=== PATIENT | female | born 1950 | race Caucasian/White ===

== ENCOUNTER 2017-12-21 16:26 | Emergency (ER) | payer BC, OTHER ==
[2017-12-21 17:13] LABS: Absolute Monocytes 0.5 K/uL (0.1-1.3); Absolute Neutrophil 2.3 K/uL (1.8-8.0); Basophils % 0.7 % (0-1.3); Eosinophils % 2.1 % (0-4.4); Hematocrit 42.2 % (36.0-45.0); Lymphocytes % 27.1 % (15.3-44.8); MCH 30.7 pg (27.0-35.0); MCV 91.2 fL (80-100); MPV 8.6 fL (7.6-11.3); Monocytes % 11.7 % (3.3-12.3); RBC Red Blood Cell Count 4.63 M/uL (3.86-4.86)
[2017-12-21 17:26] LABS: Albumin 3.9 g/dL (3.4-5.0); Bilirubin Direct 0.1 mg/dL (0-0.2); Bilirubin Total 0.3 mg/dL (0.2-1.0); Magnesium 2.3 mg/dL (1.8-2.4); Potassium 3.7 mmol/L (3.5-5.1); Protein, Total 7.1 g/dL (6.4-8.2)
--- NOTE | 2017-12-21 17:47 | EDPHYS ---
Physician Documentation [facility] Name: Nancy Funes Age: 67 yrs Sex: Female : 1950 Arrival Date: 12/21/2017 Time: 16:27 Bed 5 Private MD: Nahun Ontiveros B ED Physician Christopher Pal HPI: 12/21 17:00 This 67 yrs old Female presents to ER via Ambulatory with complaints of cp Abnormal Lab Results. 17:00 Associated signs and symptoms: Pertinent negatives: abdominal pain, chest pain, fever, cp headache, vomiting. 17:00 Patient reports having routine blood work today with results showing elevated potassium cp of 6.2. Historical: - Allergies: 16:38 Amoxicillin; aj1 - Home Meds: 17:27 alondronate 70mg weekly [Active]; hydroxychloroquine 200 mg oral tab 1.5 tabs once sv daily [Active]; calcium, potassium, zinc [Active]; multivitamin oral oral [Active]; ginkgo biloba oral oral [Active]; Magnesium Oxide Oral [Active]; - PMHx: 16:38 Lupus; aj1 - PSHx: 16:38 None; aj1 - Immunization history:: Flu vaccine is not up to date. - Social history:: Smoking status: Patient/guardian denies using tobacco. - Ebola Screening: : Patient denies travel to an Ebola-affected area in the 21 days before illness onset. ROS: 17:05 Constitutional: Negative for body aches, chills, fever. cp 17:05 Cardiovascular: Negative for chest pain, palpitations. cp 17:05 Respiratory: Negative for cough, shortness of breath, wheezing. 17:05 Abdomen/GI: Negative for abdominal pain, nausea, vomiting, and diarrhea, black/tarry stool, rectal bleeding. 17:05 Skin: Negative for cellulitis, rash. 17:05 Neuro: Negative for altered mental status, headache, syncope, near syncope, weakness. 17:05 All other systems are negative. Exam: 16:47 ECG was reviewed by the Attending Physician. cp 17:10 Constitutional: The patient appears in no acute distress, alert, awake, cp non-diaphoretic, non-toxic, well developed, well nourished. 17:10 Head/Face: Normocephalic, atraumatic. cp 17:10 Eyes: Periorbital structures: appear normal, Conjunctiva: normal, no exudate, no injection, Lids and lashes: appear normal, bilaterally. 17:10 ENT: External ear(s): are unremarkable, Nose: is normal, Mouth: Lips: moist, Oral mucosa: moist, Posterior pharynx: is normal, airway is patent, no erythema, no exudate. 17:10 Chest/axilla: Inspection: normal, Palpation: is normal, no crepitus, no tenderness. 17:10 Cardiovascular: Rate: normal, Rhythm: regular. 17:10 Respiratory: the patient does not display signs of respiratory distress, Respirations: normal, no use of accessory muscles, no retractions, no splinting, no tachypnea, labored breathing, is not present, Breath sounds: are clear throughout, no decreased breath sounds, no stridor, no wheezing. 17:10 Abdomen/GI: Exam negative for discomfort, distension, guarding, Inspection: abdomen appears normal. 17:10 Back: pain, is absent, ROM is normal. 17:10 Skin: cellulitis, is not appreciated, no rash present. Vital Signs: 16:38 BP 155 / 81; Pulse 79; Resp 16; Temp 98.0(O); Pulse Ox 100% on R/A; Weight 58.06 kg aj1 (R); Height 5 ft. 6 in. (167.64 cm) (R); Pain 0/10; 17:30 BP 127 / 81; Pulse 69; Resp 15; Pulse Ox 99% ; sv 16:38 Body Mass Index 20.66 (58.06 kg, 167.64 cm) aj1 MDM: 16:40 Patient medically screened. cp 17:00 Differential diagnosis: cardiac arrythmia, electrolyte abnormality, renal disease. cp 17:40 Data reviewed: vital signs, nurses notes, lab test result(s), EKG. cp 17:40 Test interpretation: by ED physician or midlevel provider: ECG. 12/21 16:54 Order name: CBC with Diff; Complete Time: 17:37 12/21 17:37 Interpretation: Normal except: WBC 3.9. 12/21 16:54 Order name: BMP; Complete Time: 17:37 12/21 17:37 Interpretation: Normal except: GFR 63. 12/21 16:54 Order name: EKG; Complete Time: 16:55 cp 12/21 16:54 Order name: EKG - Nurse/Tech; Complete Time: 17:02 cp 12/21 16:54 Order name: Magnesium; Complete Time: 17:37 cp 12/21 16:54 Order name: LFT's; Complete Time: 17:37 cp 12/21 16:54 Order name: IV; Complete Time: 17:02 cp EC:47 Rate is 74 beats/min. Rhythm is regular. NE interval is normal. QRS interval is normal. cp QT interval is normal. Interpreted by me. Reviewed by me. Administered Medications: No medications were administered Disposition: 18:15 Chart complete. cp 18:39 Co-signature as Attending Physician, Christopher Pal MD. rn Disposition: 12/21/17 17:46 Discharged to Home. Impression: Encounter for screening, unspecified. - Condition is Stable. - Medication Reconciliation Form, Thank You Letter, Antibiotic Education, Prescription Opioid Use form. - Follow up: Shima Rose MD; When: 1 - 2 days; Reason: Recheck today's complaints. - Problem is new. - Symptoms are unchanged. Signatures: Dispatcher [employer] EDMS Perla Rosales RN RN [facility] Delaney Kohli RN RN Jerrell Toledo RN RN Christopher Pal MD MD rn Page, Corey, PA PA cp Corrections: (The following items were deleted from the chart) 17: 16:38 Home Meds: lupus medications; [facility] 17:27 16:38 Home Meds: alondronate; [facility] 18:05 17:46 12/21/2017 17:46 Discharged to Home. Impression: Encounter for screening, sg unspecified. Condition is Stable. Forms are Medication Reconciliation Form, Thank You Letter, Antibiotic Education, Prescription Opioid Use. Follow up: Shima Rose; When: 1 - 2 days; Reason: Recheck today's complaints. Problem is new. Symptoms are unchanged. cp
--- NOTE | 2017-12-21 17:47 | ER ---
Nurse's Notes [facility] Name: Nancy Funes Age: 67 yrs Sex: Female : 1950 Arrival Date: 12/21/2017 Time: 16:27 Bed 5 Private MD: Nahun Ontiveros B Diagnosis: Encounter for screening, unspecified Presentation: 12/21 16:36 Presenting complaint: Patient states: She was having routine blood work done today and aj1 they called and told her that her potassium was 6.2. Denies chest pain. Reports that she gets palpitations regularly. Transition of care: patient was not received from another setting of care. Onset of symptoms was December 21, 2017. Risk Assessment: Do you want to hurt yourself or someone else? Patient reports no desire to harm self or others. Initial Sepsis Screen: Does the patient meet any 2 criteria? No. Patient's initial sepsis screen is negative. Does the patient have a suspected source of infection? No. Patient's initial sepsis screen is negative. Care prior to arrival: None. 16:36 Method Of Arrival: Ambulatory [facility] 16:36 Acuity: QUETA 3 aj1 Triage Assessment: 16:38 General: Appears in no apparent distress. comfortable, Behavior is calm, cooperative, aj1 appropriate for age. Pain: Denies pain. Neuro: Level of Consciousness is awake, alert, obeys commands. Cardiovascular: Patient's skin is warm and dry. Respiratory: Airway is patent Respiratory effort is even, unlabored, Respiratory pattern is regular, symmetrical. Historical: - Allergies: 16:38 Amoxicillin; aj1 - Home Meds: 17:27 alondronate 70mg weekly [Active]; hydroxychloroquine 200 mg oral tab 1.5 tabs once sv daily [Active]; calcium, potassium, zinc [Active]; multivitamin oral oral [Active]; ginkgo biloba oral oral [Active]; Magnesium Oxide Oral [Active]; - PMHx: 16:38 Lupus; aj1 - PSHx: 16:38 None; aj1 - Immunization history:: Flu vaccine is not up to date. - Social history:: Smoking status: Patient/guardian denies using tobacco. - Ebola Screening: : Patient denies travel to an Ebola-affected area in the 21 days before illness onset. Screenin:55 Abuse screen: Denies threats or abuse. Denies injuries from another. Nutritional sv screening: No deficits noted. Tuberculosis screening: No symptoms or risk factors identified. Fall Risk None identified. Assessment: 16:55 General: Appears in no apparent distress. comfortable, slender, well developed, sv Behavior is calm, cooperative, appropriate for age. Pain: Denies pain. Neuro: Level of Consciousness is awake, alert, obeys commands, Oriented to person, place, time, situation, Moves all extremities. Full function Gait is steady, Speech is normal. Cardiovascular: Patient's skin is warm and dry. Rhythm is sinus rhythm. Respiratory: Respiratory effort is even, unlabored, Respiratory pattern is regular, symmetrical. Derm: Skin is pink, warm \T\ dry. 17:55 Reassessment: Patient appears in no apparent distress at this time. Patient and/or sg family updated on plan of care and expected duration. Pain level reassessed. Patient is alert, oriented x 3, equal unlabored respirations, skin warm/dry/pink. Patient states feeling better. Patient states symptoms have improved. Vital Signs: 16:38 BP 155 / 81; Pulse 79; Resp 16; Temp 98.0(O); Pulse Ox 100% on R/A; Weight 58.06 kg aj1 (R); Height 5 ft. 6 in. (167.64 cm) (R); Pain 0/10; 17:30 BP 127 / 81; Pulse 69; Resp 15; Pulse Ox 99% ; sv 16:38 Body Mass Index 20.66 (58.06 kg, 167.64 cm) aj1 ED Course: 16:27 Patient arrived in ED. sb2 16:27 Nahun Ontiveros MD is Private Physician. sb2 16:37 Triage completed. aj1 16:38 Arm band placed on Patient placed in an exam room. aj1 16:39 Wil Cunningham PA is PHCP. cp 16:39 Christopher Pal MD is Attending Physician. cp 16:47 Delaney Kohli, JAKOB is Primary Nurse. sv 16:47 EKG done, by dyno technician. reviewed by Wil CRABTREE. sm3 16:50 angle shearer on. Pulse ox on. NIBP on. Door closed. Warm blanket given. Head of bed sv elevated. 16:55 Patient has correct armband on for positive identification. Placed in gown. Bed in low sv position. Adult w/ patient. 16:55 Initial lab(s) drawn, by me, sent to lab. Inserted saline lock: 20 gauge in right sv antecubital area, using aseptic technique. Blood collected. Flushed right antecubital with 5 ml normal saline. 17:43 Shima Rose MD is Referral Physician. cp 18:04 No provider procedures requiring assistance completed. IV discontinued, intact, sg bleeding controlled, No redness/swelling at site. Pressure dressing applied. Administered Medications: No medications were administered Outcome: 17:46 Discharge ordered by MD. cp 18:04 Discharged to home ambulatory, with family. sg 18:04 Condition: good 18:04 Discharge instructions given to patient, Instructed on discharge instructions, follow up and referral plans. safety practices, Demonstrated understanding of instructions, follow-up care. 18:05 Patient left the ED. sg Signatures: Perla Rosales RN RN aj Delaney Kohli RN RN Jerrell Toledo RN RN sg Wil Cunningham, PA PA cp Noreen Saldivar 2 Carlota Phelps sm3 Corrections: (The following items were deleted from the chart) 17:27 16:38 Home Meds: lupus medications; aj1 sv 17:27 16:38 Home Meds: alondronate; aj1 sv
--- NOTE | 2017-12-21 22:26 | EKG ---
Test Date: 2017-12-21 Test Time: 16:43:53 Community Services Coordinator: NISREEN MEASUREMENT RESULTS: Intervals: Rate: 74 MT: 154 QRSD: 88 QT: 394 QTc: 437 [place]: P: 85 MT: 154 QRS: 46 T: 53 INTERPRETIVE STATEMENTS: Normal sinus rhythm Possible Anterior infarct, age undetermined Abnormal ECG No previous ECG available for comparison Electronically Signed On 12-21-17 22:26:15 CDT by Jonathan Smith
== END 2017-12-21 18:05 | disposition home or self-care (01) ==
LOC: ER 16:26
DX: Z13.9 Encounter for screening, unspecified (principal)
CPT/HCPCS: 36415; 80048; 80076; 83735; 85025; 93005; 99284

== ENCOUNTER 2018-04-05 16:48 | Emergency (ER) | payer OTHER ==
--- OUTSIDE RECORDS SUMMARY | 2018-04-05 16:52 | XMS REPORT ---
:1950 [facility] Address [address] [place] [address] Dr. Manriquez [address] [place] [id number] Care Team Providers Name Role Phone Unavailable Unavailable Unavailable Problems This patient has no known problems. Allergies, Adverse Reactions, Alerts This patient has no known allergies or adverse reactions. Medications This patient has no known medications.
[2018-04-05 18:01] LABS: Absolute Monocytes 0.3 K/uL (0.1-1.3); Basophils % 0.8 % (0-1.3); Lymphocytes % 28.9 % (15.3-44.8); MPV 8.8 fL (7.6-11.3); Monocytes % 9.6 % (3.3-12.3); RBC Red Blood Cell Count 4.66 M/uL (3.86-4.86)
[2018-04-05 18:14] LABS: Magnesium 2.4 mg/dL (1.8-2.4); Potassium 3.6 mmol/L (3.5-5.1)
--- NOTE | 2018-04-05 19:08 | ER ---
Nurse's Notes [facility] Name: Nancy Funes Age: 67 yrs Sex: Female : 1950 Arrival Date: 04/05/2018 Time: 16:49 Bed 23 Private MD: Nahun Ontiveros B Diagnosis: Encounter for screening, unspecified Presentation: 04/05 16:57 Presenting complaint: Patient states: Had blood work done, was notified that her sg Potassium level was 5.5 and that her Bicarb level was also out of range but does not remember the result at this time, pt denies CP/SOB/DIZZINESS/N/V/D/Fever. Transition of care: patient was not received from another setting of care. Onset of symptoms was April 05, 2018. Risk Assessment: Do you want to hurt yourself or someone else? Patient reports no desire to harm self or others. Initial Sepsis Screen: Does the patient meet any 2 criteria? No. Patient's initial sepsis screen is negative. Does the patient have a suspected source of infection? No. Patient's initial sepsis screen is negative. Care prior to arrival: None. 16:57 Method Of Arrival: Ambulatory sg 16:57 Acuity: QUETA 3 sg Historical: - Allergies: 16:59 Amoxicillin; sg - PMHx: 16:59 Lupus; sg - PSHx: 16:59 None; sg - Immunization history:: Adult Immunizations up to date. - Social history:: Smoking status: . - Ebola Screening: : Patient negative for fever greater than or equal to 101.5 degrees Fahrenheit, and additional compatible Ebola Virus Disease symptoms Patient denies exposure to infectious person Patient denies travel to an Ebola-affected area in the 21 days before illness onset No symptoms or risks identified at this time. Screenin:30 Abuse screen: Denies threats or abuse. Nutritional screening: No deficits noted. tl3 Tuberculosis screening: No symptoms or risk factors identified. Fall Risk None identified. Assessment: 17:30 General: Appears in no apparent distress. comfortable, slender, well groomed, well tl3 developed, well nourished, Behavior is calm, cooperative, appropriate for age, pt had abnormal lab value today and wants it rechecked. Pain: Denies pain. Neuro: No deficits noted. Level of Consciousness is awake, alert, obeys commands, Oriented to person, place, time, situation, Appropriate for age. Cardiovascular: Patient's skin is warm and dry. Respiratory: Airway is patent Respiratory effort is even, unlabored, Respiratory pattern is regular, symmetrical. GI: No deficits noted. No signs and/or symptoms were reported involving the gastrointestinal system. : No deficits noted. No signs and/or symptoms were reported regarding the genitourinary system. EENT: No deficits noted. No signs and/or symptoms were reported regarding the EENT system. Derm: No deficits noted. No signs and/or symptoms reported regarding the dermatologic system. Musculoskeletal: No deficits noted. No signs and/or symptoms reported regarding the musculoskeletal system. 19:29 Reassessment: Patient appears in no apparent distress at this time. No changes from tl3 previously documented assessment. Patient and/or family updated on plan of care and expected duration. Pain level reassessed. Patient is alert, oriented x 3, equal unlabored respirations, skin warm/dry/pink. Vital Signs: 16:58 BP 151 / 86; Pulse 77; Resp 17; Temp 97.7; Pulse Ox 100% on R/A; Weight 70.31 kg; Pain sg 3/10; 19:29 BP 137 / 68; Pulse 68; Resp 18; Pulse Ox 100% on R/A; tl3 ED Course: 16:49 Patient arrived in ED. rg4 16:49 Nahun Ontiveros MD is Private Physician. rg4 16:52 Carlo Cuevas NP is PHCP. pm1 16:52 Wil Gauthier MD is Attending Physician. pm1 16:52 PHCP role handed off by Carlo Cuevas NP cp 16:52 Wil Cunningham PA is PHCP. cp 16:56 Arm band placed on. sg 16:58 Triage completed. sg 17:08 EKG done, by field service tech. reviewed by Wil CRABTREE. sm3 17:24 Jeri Blake, JAKOB is Primary Nurse. tl3 17:30 Patient has correct armband on for positive identification. Bed in low position. Call tl3 light in reach. Side rails up X 1. 17:30 No provider procedures requiring assistance completed. Inserted saline lock:. Inserted tl3 saline lock: 20 gauge in right antecubital area, using aseptic technique. Blood collected. 19:32 IV discontinued, intact, bleeding controlled, No redness/swelling at site. Pressure tl3 dressing applied. Administered Medications: No medications were administered Outcome: 19:08 Discharge ordered by . pari 19:32 Discharged to home ambulatory. tl3 19:32 Condition: stable 19:32 Discharge instructions given to patient, Instructed on discharge instructions, follow up and referral plans. Demonstrated understanding of instructions, follow-up care. 19:33 Patient left the ED. tl3 Signatures: Jerrell Toledo RN RN Wil Brewer PA PA cp Marinas, Patrick, NP AUTOMOTIVE MAINTENANCE TECHNICIAN pm1 Maribel Ovalle rg4 Jeri Blake RN RN tl3 Carlota Phelps sm3 Corrections: (The following items were deleted from the chart) 19:33 17:30 General: Appears in no apparent distress. comfortable, slender, well groomed, tl3 well developed, well nourished, Behavior is calm, cooperative, appropriate for age, tl3
--- NOTE | 2018-04-05 19:08 | EDPHYS ---
Physician Documentation [facility] Name: Nancy Funes Age: 67 yrs Sex: Female : 1950 Arrival Date: 04/05/2018 Time: 16:49 Bed 23 Private MD: Nahun Ontiveros B ED Physician Wil Gauthier HPI: 04/05 17:25 This 67 yrs old Female presents to ER via Ambulatory with complaints of cp Abnormal Lab Results. 17:25 abnormal lab results: elevated serum potassium. cp 17:25 Onset: The symptoms/episode began/occurred today. Severity of symptoms: in the cp emergency department the symptoms none. Historical: - Allergies: 16:59 Amoxicillin; sg - PMHx: 16:59 Lupus; sg - PSHx: 16:59 None; sg - Immunization history:: Adult Immunizations up to date. - Social history:: Smoking status: . - Ebola Screening: : Patient negative for fever greater than or equal to 101.5 degrees Fahrenheit, and additional compatible Ebola Virus Disease symptoms Patient denies exposure to infectious person Patient denies travel to an Ebola-affected area in the 21 days before illness onset No symptoms or risks identified at this time. ROS: 17:30 Constitutional: Negative for body aches, chills, fever, poor PO intake. cp 17:30 Cardiovascular: Negative for chest pain, edema, palpitations. cp 17:30 Respiratory: Negative for cough, shortness of breath, wheezing. 17:30 Abdomen/GI: Negative for abdominal pain, nausea, vomiting, and diarrhea, anorexia, black/tarry stool, rectal bleeding. 17:30 Skin: Negative for cellulitis, rash. 17:30 Neuro: Negative for altered mental status, headache, numbness, tingling, weakness. Exam: 17:15 ECG was reviewed by the Attending Physician. cp 17:35 Constitutional: The patient appears in no acute distress, alert, awake, cp non-diaphoretic, non-toxic, well developed, well nourished. 17:35 Head/Face: Normocephalic, atraumatic. cp 17:35 Eyes: Periorbital structures: appear normal, Conjunctiva: normal, no exudate, no injection, Lids and lashes: appear normal, bilaterally. 17:35 ENT: External ear(s): are unremarkable, Nose: is normal, Mouth: Lips: moist, Oral mucosa: moist, Posterior pharynx: Airway: no evidence of obstruction, patent. 17:35 Chest/axilla: Inspection: normal. 17:35 Cardiovascular: Rate: normal, Rhythm: regular, Edema: is not appreciated. 17:35 Respiratory: the patient does not display signs of respiratory distress, Respirations: normal, no use of accessory muscles, no retractions, no splinting, no tachypnea. 17:35 Abdomen/GI: Exam negative for discomfort, distension, guarding, Inspection: abdomen appears normal. 17:35 Neuro: Orientation: to person, place \T\ time. Mentation: is normal, Cerebellar function: is grossly normal, Motor: moves all fours, Gait: is steady, at a normal pace, without difficulty. Vital Signs: 16:58 BP 151 / 86; Pulse 77; Resp 17; Temp 97.7; Pulse Ox 100% on R/A; Weight 70.31 kg; Pain sg 3/10; 19:29 BP 137 / 68; Pulse 68; Resp 18; Pulse Ox 100% on R/A; tl3 MDM: 16:53 Patient medically screened. abhi 18:00 Differential Diagnosis electrolyte abnormality, cardiac arrythmia. 18:26 Data reviewed: vital signs, nurses notes, lab test result(s), EKG. 18:26 Counseling: I had a detailed discussion with the patient and/or guardian regarding: the historical points, exam findings, and any diagnostic results supporting the discharge/admit diagnosis, lab results, the need for outpatient follow up, a family practitioner, to return to the emergency department if symptoms worsen or persist or if there are any questions or concerns that arise at home. ED course: VSS. Lab results today show serum potassium wnl. 04/05 17:21 Order name: BMP; Complete Time: 18:19 04/05 18:20 Interpretation: Normal except: GFR 68. 04/05 17:21 Order name: Magnesium; Complete Time: 18:19 04/05 18:20 Interpretation: MG 2.4; Reviewed. 04/05 17:21 Order name: Urine Dipstick-Ancillary (obtain specimen) 04/05 17:21 Order name: CBC with Diff; Complete Time: 18:19 04/05 18:20 Interpretation: Normal except: WBC 3.4. 04/05 17:26 Order name: EKG; Complete Time: 17:27 cp 04/05 17:26 Order name: EKG - Nurse/Tech cp EC:15 Rate is 69 beats/min. Rhythm is regular. VT interval is normal. QRS interval is normal. cp QT interval is normal. T waves are Flattened in lead aVL. Interpreted by me. Reviewed by me. Administered Medications: No medications were administered Disposition: 19:45 Chart complete. 04/06 07:00 Co-signature as Attending Physician, Wil Gauthier MD I agree with the assessment and [facility] plan of care. Disposition: 04/05/18 19:08 Discharged to Home. Impression: Encounter for screening, unspecified. - Condition is Stable. - Discharge Instructions: Medical Screening Exam. - Medication Reconciliation Form, Thank You Letter, Antibiotic Education, Prescription Opioid Use form. - Follow up: Private Physician; When: 2 - 3 days; Reason: Recheck today's complaints. - Problem is new. - Symptoms have improved. Signatures: Dispatcher [employer] EDMI Jerrell Toeldo, RN RN Wil Dunn MD MD cha Page, Corey, LEYDA PA Jeri Blake, RN RN tl3 Corrections: (The following items were deleted from the chart) 04/05 19:33 19:08 04/05/2018 19:08 Discharged to Home. Impression: Encounter for screening, tl3 unspecified. Condition is Stable. Forms are Medication Reconciliation Form, Thank You Letter, Antibiotic Education, Prescription Opioid Use. Follow up: Private Physician; When: 2 - 3 days; Reason: Recheck today's complaints. Problem is new. Symptoms have improved. cp
--- NOTE | 2018-04-06 06:24 | EKG ---
Test Date: 2018-04-05 Test Time: 17:04:49 Buttonhole Maker Hand: NISREEN MEASUREMENT RESULTS: Intervals: Rate: 69 SD: 166 QRSD: 88 QT: 410 QTc: 439 [place]: P: 81 SD: 166 QRS: 83 T: 74 INTERPRETIVE STATEMENTS: Normal sinus rhythm Cannot rule out Anterior infarct, age undetermined Abnormal ECG Compared to ECG 12/21/2017 16:43:53 No significant changes Electronically Signed On 04-06-18 06:13:24 CERTIFIED REHABILITATION COUNSELOR by Jonathan Smith
== END 2018-04-05 19:33 | disposition home or self-care (01) ==
LOC: ER 16:48
DX: Z13.9 Encounter for screening, unspecified (principal); R94.31 Abnormal electrocardiogram [ECG] [EKG]
CPT/HCPCS: 36415; 80048; 83735; 85025; 93005; 99283

== ENCOUNTER 2021-04-01 09:52 | Emergency (ER) | payer OTHER ==
--- OUTSIDE RECORDS SUMMARY | 2021-04-01 09:57 | XMS REPORT | Continuity of Care Document ---
:1950 Author Organization [facility] t Address [address] [place] [address] Care Team Providers Name Role Phone Ike Ontiveros Primary Care Physician Alexandria KRUEGER Attending Clinician Unavailable Radiology Attending Clinician Unavailable RADIOLOGY Attending Clinician Unavailable Kimberly Curry PA-C Attending Clinician Kimberly CURRY Attending Clinician Unavailable Vtc-Lab Attending Clinician Unavailable Alexandria Krueger DO Attending Clinician Vazquez ROBERT R Attending Clinician Unavailable HAYLEY Attending Clinician Unavailable Alexandria HERNANDEZ Attending Clinician Unavailable SLOAN OLIVER Attending Clinician Unavailable Sloan Oliver DO Attending Clinician Talia STALLWORTH Attending Clinician Unavailable 1, Lab Attending Clinician Unavailable Talia Stallworth MD Attending Clinician Doctor Unassigned, Name Attending Clinician Unavailable Nasreen BENITO Attending Clinician Unavailable Payers Payer Name Policy Type Policy Number Effective Date Expiration Date S ource Problems Condition Condition Condition Status Onset Resolution Last Treating Co mments Source Name Details Category Date Date Treatment Clinician Date Long-term Long-term Disease Active 2014-03 Uni vers use of use of 0-01 ity of Plaquenil 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, [place], 00:[place] bilateral bilateral 00 [facility] vickie Branch 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 0- ity of erythemato erythemato 00:[place]: [place] nataliia nataliia 00 Medical Branch Allergies, Adverse Reactions, Alerts Allergy Allergy Status Severity Reaction(s) Onset Inactive Treating Comm ents Source Name Type Date Date Clinician Amoxicil Propensi Active Rash Univer s shay ty to 09-30 ity of adverse 00:00: [place] reaction 00 Medical s Branch AMOXICIL DRUG Active Rash [facility] SHAY INGREDI 09-30 ity of 00:00: [place] 00 Medical Branch Social History Social Habit Start Date Stop Date Quantity Comments Source History SDOH [facility] [place] Alcohol Frequency Medical Branch History [facility] [place] Alcohol Std Drinks Medica l Branch History [facility] [place] Alcohol Binge [facility] Exposure to Not sure [facility] SARS-CoV-2 (event) Medica l Branch Alcohol intake 2020-12-09 2020-12-09 0 /d [facility] 00:00:00 00:00:00 Medical Branch Tobacco use and 2014-09-30 2014-09-30 Never used [facility] exposure 00:00:00 00:00:00 Medical Branch Alcohol Comment 2014-09-30 2014-09-30 rarely [facility] 00:00:00 00:00:00 Medical Branch [birth year] [facility] 00:00:00 00:00:00 Medical Branch Smoking Status Start Date Stop Date Source Never smoker [facility] [place] Medications Ordered Filled Start Stop Current Ordering Indication Dosage Frequency Signature Comments Components Source Medication Medication Date Date Medication? Clinician (SIG) Name Name hydrOXYchlo 2021- No [id number] 200mg Take 1 [facility] roQUINE 200 12-03 tablet by it y of mg tablet 00:00: 05:59 mouth [place] 00 :00 daily for Medical 180 days. Branch hydrOXYchlo 2021- No [id number] 200mg Take 1 [facility] roQUINE 200 12-03 tablet by it y of mg tablet 00:00: 05:59 mouth [place] 00 :00 daily for Medical 180 days. Branch hydrOXYchlo 2020-2021- No [id number] 200mg Take 1 [facility] roQUINE 200 12-03 tablet by it y of mg tablet 00:00: 05:59 mouth [place] 00 :00 daily for Medical 180 days. Branch hydrOXYchlo 2020-2021- No [id number] 200mg Take 1 [facility] roQUINE 200 12-03 tablet by it y of mg tablet 00:00: 05:59 mouth [place] 00 :00 daily for Medical 180 days. Branch hydrOXYchlo 2020-2021- No [id number] 200mg Take 1 [facility] roQUINE 200 12-03 tablet by it y of mg tablet 00:00: 05:59 mouth [place] 00 :00 daily for Medical 180 days. [place] hydrOXYchlo 2020-2021- No [id number] 200mg Take 1 [facility] roQUINE 200 12-03 tablet by it y of mg tablet 00:00: 05:59 mouth [place] 00 :00 daily for Medical 180 days. Branch hydrOXYchlo 2020-2021- No [id number] 200mg Take 1 [facility] roQUINE 200 12-03 tablet by it y of mg tablet 00:00: 05:59 mouth [place] 00 :00 daily for Medical 180 days. [place] hydrOXYchlo 2020-2- No [id number] 200mg Take 1 [facility] roQUINE 200 12-03 tablet by it y of mg tablet 00:00: 05:59 mouth [place] 00 :00 daily for Medical 180 days. [place] hydrOXYchlo 2020-0 2- No [id number] 200mg Take 1 [facility] roQUINE 200 12-03 tablet by it y of mg tablet 00:00: 05:59 mouth [place] 00 :00 daily for Medical 180 days. Branch alendronate 2020-0 Yes [id number] TAKE 1 [facility] 70 mg 6-29 TABLET BY ity of tablet 00:00: MOUTH ONCE [place] 00 A WEEK Medical Branch alendronate 202-0 Yes [id number] TAKE 1 [facility] 70 mg 6-29 TABLET BY ity of tablet 00:00: MOUTH ONCE [place] 00 A WEEK Medical Branch alendronate 2021-0 Yes [id number] TAKE 1 [facility] 70 mg 6-29 TABLET BY ity of tablet 00:00: MOUTH ONCE Medical Branch alendronate 2020-0 Yes [id number] TAKE 1 [facility] 70 mg 6-29 TABLET BY ity of tablet 00:00: MOUTH ONCE Medical Branch alendronate 2020-0 Yes [id number] TAKE 1 [facility] 70 mg 6-29 TABLET BY ity of tablet 00:00: MOUTH ONCE Medical Branch alendronate 2020-0 Yes [id number] TAKE 1 [facility] 70 mg 6-29 TABLET BY ity of tablet 00:00: MOUTH ONCE Medical Branch alendronate 2020-0 Yes [id number] TAKE 1 [facility] 70 mg 6-29 TABLET BY ity of tablet 00:00: MOUTH ONCE Medical Branch alendronate 2020-0 Yes [id number] TAKE 1 [facility] 70 mg 6-29 TABLET BY ity of tablet 00:00: MOUTH ONCE Medical Branch alendronate 2020-0 Yes [id number] TAKE 1 [facility] 70 mg 6-29 TABLET BY ity of tablet 00:00: MOUTH ONCE Medical Branch alendronate 2020-0 Yes [id number] TAKE 1 [facility] 70 mg 6-29 TABLET BY ity of tablet 00:00: MOUTH ONCE Medical Branch alendronate 2020-0 Yes [id number] TAKE 1 [facility] 70 mg 6-29 TABLET BY ity of tablet 00:00: MOUTH ONCE [place] [facility] alendronate 2020-0 Yes [id number] TAKE 1 [facility] 70 mg 6-29 TABLET BY ity of tablet 00:00: MOUTH ONCE Medical Branch alendronate 2020-0 Yes [id number] TAKE 1 [facility] 70 mg 6-29 TABLET BY ity of tablet 00:00: MOUTH ONCE Medical Branch HYDROXYCHLO 2020-0 Yes [id number] TAKE 1 AND [facility] ROQUINE 200 6-07 1/2 ity of mg tablet 00:00: TABLETS BY [place] 00 MOUTH Medical EVERY DAY Branch HYDROXYCHLO 2021-0 Yes [id number] TAKE 1 AND [facility] ROQUINE 200 6-07 1/2 ity of mg tablet 00:00: TABLETS BY [place] 00 MOUTH Medical EVERY DAY [place] [facility] Yes [id number] TAKE 1 AND Univers ROQUINE 200 - 1/2 ity of mg tablet 00:00: TABLETS BY [place] MOUTH Medical EVERY DAY Branch HYDROXYCHLO 2020-0 Yes [id number] TAKE 1 AND Univers ROQUINE 200 08-31 1/2 ity of mg tablet 00:00: TABLETS BY [place] MOUTH Medical EVERY DAY [facility] Yes [id number] TAKE 1 AND Univers ROQUINE 200 08-31 1/2 ity of mg tablet 00:00: TABLETS BY [place] MOUTH Medical EVERY DAY Branch HYDROXYCHLO 0 2020- No [id number] TAKE 1 AND [facility] ROQUINE 200 08-31 1/2 ity of mg tablet 00:00: 00:00 TABLETS BY [place] 00 :00 MOUTH Medical EVERY DAY [place] HYDROXYCHLO 2020-0 2020- No [id number] TAKE 1 AND Univers ROQUINE 200 08-31 1/2 ity of mg tablet 00:00: 00:00 TABLETS BY [place] 00 :00 MOUTH Medical [facility] DAY [place] [facility]- No [id number] TAKE 1 AND Univers ROQUINE 200 08-31 1/2 ity of mg tablet 00:00: 00:00 TABLETS BY [place] 00 :00 MOUTH Medical EVERY DAY [place] [facility]0 Yes [id number] TAKE 1 AND Univers ROQUINE 200 3-11 1/2 ity of mg tablet 00:00: TABLETS BY [place] MOUTH Medical EVERY DAY [facility] 2020-0 2020- No [id number] TAKE 1 AND Univers ROQUINE 200 3-11 - 1/2 ity of mg tablet 00:00: 00:00 TABLETS BY [place] 00 :00 MOUTH Medical EVERY DAY [place] alendronate 2020-0 Yes [id number] One weekly Univers 70 mg 1-07 as ity of tablet 00:00: directed [address] alendronate 2020-0 Yes [id number] One weekly Univers 70 mg 1-07 as ity of tablet 00:00: directed [address] alendronate 2020-0 Yes [id number] One weekly [facility] 70 mg 1-07 as ity of tablet 00:00: directed [place] [facility] alendronate 2020-0 Yes [id number] One weekly [facility] 70 mg 1-07 as ity of tablet 00:00: directed [place] [facility] alendronate 0 Yes [id number] One weekly [facility] 70 mg 1-07 as ity of tablet 00:00: directed [place] [facility] alendronate 2020-0 2021- No [id number] One weekly Univers 70 mg - 06- as ity of tablet 00:00: 00:00 directed [place] 00 :00 [facility] HYDROXYCHLO 2020-1 Yes [id number] TAKE 1 AND Univers ROQUINE 200 2-15 1/2 ity of mg tablet 00:00: TABLETS BY [place] 00 MOUTH Medical EVERY DAY [place] HYDROXYCHLO 2020-1 Yes [id number] TAKE 1 AND [facility] ROQUINE 200 2-15 1/2 ity of mg tablet 00:00: TABLETS BY [place] MOUTH Medical EVERY DAY [place] HYDROXYCHLO 2020-1 Yes [id number] TAKE 1 AND Univers ROQUINE 200 2-15 1/2 ity of mg tablet 00:00: TABLETS BY [place] MOUTH Medical EVERY DAY Branch HYDROXYCHLO 2020-1 Yes [id number] TAKE 1 AND Univers ROQUINE 200 2-15 1/2 ity of mg tablet 00:00: TABLETS BY [place] 00 MOUTH Medical EVERY DAY Branch HYDROXYCHLO 2020-1 Yes [id number] TAKE 1 AND Univers ROQUINE 200 2-15 1/2 ity of mg tablet 00:00: TABLETS BY [place] 00 MOUTH Medical EVERY DAY Branch HYDROXYCHLO 2020-1 Yes [id number] TAKE 1 AND [facility] ROQUINE 200 2-15 1/2 ity of mg tablet 00:00: TABLETS BY [place] 00 MOUTH Medical EVERY DAY [place] HYDROXYCHLO 2020-1 202- No [id number] TAKE 1 AND Univers ROQUINE 200 2-15 03-11 1/2 ity of mg tablet 00:00: 00:00 TABLETS BY [place] 00 :00 MOUTH Medical EVERY DAY [place] HYDROXYCHLO 2020-0 Yes [id number] TAKE 1 AND Univers ROQUINE 200 8-27 1/2 ity of mg tablet 00:00: TABLETS BY [place] 00 MOUTH Medical EVERY DAY [place] HYDROXYCHLO 2020-0 Yes [id number] TAKE 1 AND Univers ROQUINE 200 8-27 1/2 ity of mg tablet 00:00: TABLETS BY [place] 00 MOUTH Medical EVERY DAY Branch HYDROXYCHLO 2020-0 Yes [id number] TAKE 1 AND Univers ROQUINE 200 8-27 1/2 ity of mg tablet 00:00: TABLETS BY [place] 00 MOUTH Medical EVERY DAY Branch HYDROXYCHLO 2020-0 Yes [id number] TAKE 1 AND Univers ROQUINE 200 8-27 1/2 ity of mg tablet 00:00: TABLETS BY [place] 00 MOUTH Medical EVERY DAY Branch HYDROXYCHLO 2020-0 Yes [id number] TAKE 1 AND Univers ROQUINE 200 8-27 1/2 ity of mg tablet 00:00: TABLETS BY [place] 00 MOUTH Medical EVERY DAY Branch HYDROXYCHLO 2020-0 Yes [id number] TAKE 1 AND Univers ROQUINE 200 8-27 1/2 ity of mg tablet 00:00: TABLETS BY [place] 00 MOUTH Medical EVERY DAY Branch HYDROXYCHLO 2020-0 Yes [id number] TAKE 1 AND Univers ROQUINE 200 8-27 1/2 ity of mg tablet 00:00: TABLETS BY [place] 00 MOUTH Medical EVERY DAY Branch HYDROXYCHLO 2020-0 2020- No [id number] TAKE 1 AND Univers ROQUINE 200 8-27 12-15 1/2 ity of mg tablet 00:00: 00:00 TABLETS BY [place] 00 :00 MOUTH Medical EVERY DAY Branch alendronate 2020-0 Yes [id number] One weekly Univers 70 mg 7-09 as ity of tablet 00:00: directed [address] alendronate 2020-0 Yes [id number] One weekly Univers 70 mg 7-09 as ity of tablet 00:00: directed [address] alendronate 2020-0 Yes [id number] One weekly Univers 70 mg 7-09 as ity of tablet 00:00: directed [address] alendronate 2020-0 Yes [id number] One weekly Univers 70 mg 7-09 as ity of tablet 00:00: directed [address] alendronate 2020-0 Yes [id number] One weekly Univers 70 mg 7-09 as ity of tablet 00:00: directed [address] alendronate 2020-0 Yes [id number] One weekly Univers 70 mg 7-09 as ity of tablet 00:00: directed [place] 00 Medical Branch alendronate 2020-0 Yes [id number] One weekly Univers 70 mg 7-09 as ity of tablet 00:00: directed [place] 00 Medical Branch alendronate 2020-0 Yes [id number] One weekly Univers 70 mg 7-09 as ity of tablet 00:00: directed [place] 00 Medical Branch alendronate 2020-0 Yes [id number] One weekly Univers 70 mg 7-09 as ity of tablet 00:00: directed [place] 00 Medical Branch alendronate 2020-0 Yes [id number] One weekly Univers 70 mg 7-09 as ity of tablet 00:00: directed [place] 00 Medical Branch alendronate 2020-0 2021- No [id number] One weekly Univers 70 mg 7-04-02 as ity of tablet 00:00: 00:00 directed [place] 00 :00 Medical Branch alendronate 2020-0 2021- No [id number] One weekly Univers 70 mg 7-04-02 as ity of tablet 00:00: 00:00 directed [place] 00 :00 Medical Branch ALENDRONATE 2020-0 Yes [id number] TAKE 1 Univers 70 mg 6-10 TABLET BY ity of tablet 00:00: MOUTH [place] 00 TIME PER Medical WEEK Branch ALENDRONATE 2020-0 Yes [id number] TAKE 1 [facility] 70 mg 6-10 TABLET BY ity of tablet 00:00: MOUTH ONE [place] 00 TIME PER Medical WEEK Branch ALENDRONATE 2020-0 2020- No [id number] TAKE 1 [facility] 70 mg 6-10 - TABLET BY ity of tablet 00:00: 00:00 MOUTH ONE [place] 00 :00 TIME PER Medical WEEK Branch hydroxychlo 2020-0 Yes 300mg Take 1.5 U nivers roquine 200 4-23 tablets by it y of mg tablet 00:00: mouth [place] 00 daily. Medical Branch hydroxychlo 2020-0 Yes 300mg Take 1.5 U nivers roquine 200 4-23 tablets by it y of mg tablet 00:00: mouth [place] 00 daily. Medical Branch hydroxychlo 2020-0 Yes 300mg Take 1.5 U nivers roquine 200 4-23 tablets by it y of mg tablet 00:00: mouth [place] 00 daily. Medical Branch hydroxychlo 2020-0 Yes 300mg Take 1.5 U nivers roquine 200 4-23 tablets by it y of mg tablet 00:00: mouth [place] 00 daily. Medical Branch hydroxychlo 2020-0 2020- No 300mg Take 1.5 Univers roquine 200 4-23 08-27 tablets by i ty of mg tablet 00:00: 00:00 mouth [place] 00 :00 daily. Medical Branch alendronate 2020-0 Yes [id number] TAKE 1 [facility] 70 mg 3-19 TABLET BY ity of tablet 00:00: MOUTH ONE [place] 00 TIME PER Medical WEEK Branch alendronate 2020-0 Yes [id number] TAKE 1 [facility] 70 mg 3-19 TABLET BY ity of tablet 00:00: MOUTH ONE 00 TIME PER Medical WEEK Branch alendronate 2020-0 Yes [id number] TAKE 1 [facility] 70 mg 3-19 TABLET BY ity of tablet 00:00: MOUTH ONE [place] TIME PER Medical WEEK Branch alendronate 2020-0 Yes [id number] TAKE 1 [facility] 70 mg 3-19 TABLET BY ity of tablet 00:00: MOUTH ONE [place] 00 TIME PER Medical WEEK Branch alendronate 2020-0 Yes [id number] TAKE 1 [facility] 70 mg 3-19 TABLET BY ity of tablet 00:00: MOUTH ONE [place] 00 TIME PER Medical WEEK Branch alendronate 2020-0 Yes [id number] TAKE 1 [facility] 70 mg 3-19 TABLET BY ity of tablet 00:00: MOUTH ONE [place] 00 TIME PER Medical WEEK Branch alendronate 2020-0 Yes [id number] TAKE 1 [facility] 70 mg 3-19 TABLET BY ity of tablet 00:00: MOUTH ONE [place] 00 TIME PER Medical WEEK Branch alendronate 2020-0 2020- No [id number] TAKE 1 Univers 70 mg 3-19 06-10 TABLET BY ity of tablet 00:00: 00:00 MOUTH ONE [place] 00 :00 TIME PER Medical WEEK Branch MULTIVITAMI 2019- Yes 1{tbl} Take 1 Tab Univers N ORAL 0-24 by mouth ity of 16:12: daily. [place] [address] Medical Branch GINKGO 2018- Yes 1{tbl} Take 1 Tab Uni vers BILOBA ORAL 0-24 by mouth ity of 16:12: daily. [place] [address] Medical Branch acetaminoph 2018- Yes Take by Un yonathan en 0-24 mouth ity of (TYLENOL) 16:12: every 6 [place] 325 mg 38 (six) Medical tablet hours as Branch needed. CALCIUM 2018-03 Yes Take by Univer s CARBONATE/V 0-24 mouth. ity of ITAMIN D3 16:12: [place] (CALCIUM + 38 Medical D ORAL) [place] MULTIVITAMI 2018-03 Yes 1{tbl} Take 1 Tab Univers N ORAL 0-24 by mouth ity of 16:12: daily. [address] GINKGO 2018-03 Yes 1{tbl} Take 1 Tab Uni vers BILOBA ORAL 0-24 by mouth ity of 16:12: daily. [address] acetaminoph 2018-03 Yes Take by Un yonathan en 0-24 mouth ity of (TYLENOL) 16:12: every 6 [place] 325 mg 38 (six) Medical tablet hours as Branch needed. CALCIUM 2018-03 Yes Take by Univer s CARBONATE/V 0-24 mouth. ity of ITAMIN D3 16:12: [place] (CALCIUM + 38 Medical D ORAL) [place] MULTIVITAMI 2018-03 Yes 1{tbl} Take 1 Tab Univers N ORAL 0-24 by mouth ity of 16:12: daily. [address] GINKGO 2018-03 Yes 1{tbl} Take 1 Tab Uni vers BILOBA ORAL 0-24 by mouth ity of 16:12: daily. [address] acetaminoph 2018-03 Yes Take by Un yonathan en 0-24 mouth ity of (TYLENOL) 16:12: every 6 [place] 325 mg 38 (six) Medical tablet hours as Branch needed. CALCIUM 2018-03 Yes Take by Univer s CARBONATE/V 0-24 mouth. ity of ITAMIN D3 16:12: [place] (CALCIUM + 38 Medical D ORAL) [place] MULTIVITAMI 2018-03 Yes 1{tbl} Take 1 Tab Univers N ORAL 0-24 by mouth ity of 16:12: daily. [address] GINKGO 2018-03 Yes 1{tbl} Take 1 Tab Uni vers BILOBA ORAL 0-24 by mouth ity of 16:12: daily. [address] acetaminoph 2018-03 Yes Take by Un yonathan en 0-24 mouth ity of (TYLENOL) 16:12: every 6 [place] 325 mg 38 (six) Medical tablet hours as Branch needed. CALCIUM 2018-03 Yes Take by Univer s CARBONATE/V 0-24 mouth. ity of ITAMIN D3 16:12: [place] (CALCIUM + 38 Medical D ORAL) Branch MULTIVITAMI 2018-03 Yes 1{tbl} Take 1 Tab Univers N ORAL 0-24 by mouth ity of 16:12: daily. [address] GINKGO 2018-03 Yes 1{tbl} Take 1 Tab Uni vers BILOBA ORAL 0-24 by mouth ity of 16:12: daily. [address] acetaminoph 2018-03 Yes Take by Un yonathan en 0-24 mouth ity of (TYLENOL) 16:12: every 6 [place] 325 mg 38 (six) Medical tablet hours as Branch needed. CALCIUM 2018-03 Yes Take by Univer s CARBONATE/V 0-24 mouth. ity of ITAMIN D3 16:12: [place] (CALCIUM + 38 Medical D ORAL) [place] MULTIVITAMI 2018-03 Yes 1{tbl} Take 1 Tab Univers N ORAL 0-24 by mouth ity of 16:12: daily. [address] GINKGO 2018-03 Yes 1{tbl} Take 1 Tab Uni vers BILOBA ORAL 0-24 by mouth ity of 16:12: daily. [address] acetaminoph 2018-03 Yes Take by Un yonathan en 0-24 mouth ity of (TYLENOL) 16:12: every 6 [place] 325 mg 38 (six) Medical tablet hours as Branch needed. CALCIUM 2018-03 Yes Take by Univer s CARBONATE/V 0-24 mouth. ity of ITAMIN D3 16:12: [place] (CALCIUM + 38 Medical D ORAL) [place] MULTIVITAMI 2018-03 Yes 1{tbl} Take 1 Tab Univers N ORAL 0-24 by mouth ity of 16:12: daily. [address] GINKGO 2018-03 Yes 1{tbl} Take 1 Tab Uni vers BILOBA ORAL 0-24 by mouth ity of 16:12: daily. [address] acetaminoph 2018-03 Yes Take by Un yonathan en 0-24 mouth ity of (TYLENOL) 16:12: every 6 [place] 325 mg 38 (six) Medical tablet hours as Branch needed. CALCIUM 2018-03 Yes Take by Univer s CARBONATE/V 0-24 mouth. ity of ITAMIN D3 16:12: [place] (CALCIUM + 38 Medical D ORAL) [place] MULTIVITAMI 2018-03 Yes 1{tbl} Take 1 Tab Univers N ORAL 0-24 by mouth ity of 16:12: daily. [address] GINKGO 2018-03 Yes 1{tbl} Take 1 Tab Uni vers BILOBA ORAL 0-24 by mouth ity of 16:12: daily. [address] acetaminoph 2018-03 Yes Take by Un yonathan en 0-24 mouth ity of (TYLENOL) 16:12: every 6 [place] 325 mg 38 (six) Medical tablet hours as Branch needed. CALCIUM 2018-03 Yes Take by Univer s CARBONATE/V 0-24 mouth. ity of ITAMIN D3 16:12: [place] (CALCIUM + 38 Medical D ORAL) [place] MULTIVITAMI 2018-03 Yes 1{tbl} Take 1 Tab Univers N ORAL 0-24 by mouth ity of 16:12: daily. [address] GINKGO 2018-03 Yes 1{tbl} Take 1 Tab Uni vers BILOBA ORAL 0-24 by mouth ity of 16:12: daily. [address] acetaminoph 2018-03 Yes Take by Un yonathan en 0-24 mouth ity of (TYLENOL) 16:12: every 6 [place] 325 mg 38 (six) Medical tablet hours as Branch needed. CALCIUM 2018-03 Yes Take by Univer s CARBONATE/V 0-24 mouth. ity of ITAMIN D3 16:12: [place] (CALCIUM + 38 Medical D ORAL) [place] MULTIVITAMI 2018-03 Yes 1{tbl} Take 1 Tab Univers N ORAL 0-24 by mouth ity of 16:12: daily. [address] GINKGO 2018-03 Yes 1{tbl} Take 1 Tab Uni vers BILOBA ORAL 0-24 by mouth ity of 16:12: daily. [address] acetaminoph 2018-03 Yes Take by Un yonathan en 0-24 mouth ity of (TYLENOL) 16:12: every 6 [place] 325 mg 38 (six) Medical tablet hours as Branch needed. CALCIUM 2018-03 Yes Take by Univer s CARBONATE/V 0-24 mouth. ity of ITAMIN D3 16:12: [place] (CALCIUM + 38 Medical D ORAL) [place] MULTIVITAMI 2018-03 Yes 1{tbl} Take 1 Tab Univers N ORAL 0-24 by mouth ity of 16:12: daily. [address] GINKGO 2018-03 Yes 1{tbl} Take 1 Tab Uni vers BILOBA ORAL 0-24 by mouth ity of 16:12: daily. [address] acetaminoph 2018-03 Yes Take by Un yonathan en 0-24 mouth ity of (TYLENOL) 16:12: every 6 [place] 325 mg 38 (six) Medical tablet hours as Branch needed. CALCIUM 2018-03 Yes Take by Univer s CARBONATE/V 0-24 mouth. ity of ITAMIN D3 16:12: [place] (CALCIUM + 38 Medical D ORAL) Branch MULTIVITAMI 2018-03 Yes 1{tbl} Take 1 Tab Univers N ORAL 0-24 by mouth ity of 16:12: daily. [address] Branch GINKGO 2018-03 Yes 1{tbl} Take 1 Tab Uni vers BILOBA ORAL 0-24 by mouth ity of 16:12: daily. [address] acetaminoph 2018-03 Yes Take by Un yonathan en 0-24 mouth ity of (TYLENOL) 16:12: every 6 [place] 325 mg 38 (six) Medical tablet hours as Branch needed. CALCIUM 2018-03 Yes Take by Univer s CARBONATE/V 0-24 mouth. ity of ITAMIN D3 16:12: [place] (CALCIUM + 38 Medical D ORAL) [place] MULTIVITAMI 2018-03 Yes 1{tbl} Take 1 Tab Univers N ORAL 0-24 by mouth ity of 16:12: daily. [address] GINKGO 2018-03 Yes 1{tbl} Take 1 Tab Uni vers BILOBA ORAL 0-24 by mouth ity of 16:12: daily. [address] acetaminoph 2018-03 Yes Take by Un yonathan en 0-24 mouth ity of (TYLENOL) 16:12: every 6 [place] 325 mg 38 (six) Medical tablet hours as Branch needed. CALCIUM 2018-03 Yes Take by Univer s CARBONATE/V 0-24 mouth. ity of ITAMIN D3 16:12: [place] (CALCIUM + 38 Medical D ORAL) Branch MULTIVITAMI 2018-03 Yes 1{tbl} Take 1 Tab Univers N ORAL 0-24 by mouth ity of 16:12: daily. [address] GINKGO 2018-03 Yes 1{tbl} Take 1 Tab Uni vers BILOBA ORAL 0-24 by mouth ity of 16:12: daily. [address] acetaminoph 2018-03 Yes Take by Un yonathan en 0-24 mouth ity of (TYLENOL) 16:12: every 6 [place] 325 mg 38 (six) Medical tablet hours as Branch needed. CALCIUM 2018-03 Yes Take by Univer s CARBONATE/V 0-24 mouth. ity of ITAMIN D3 16:12: [place] (CALCIUM + 38 Medical D ORAL) [place] MULTIVITAMI 2018-03 Yes 1{tbl} Take 1 Tab Univers N ORAL 0-24 by mouth ity of 16:12: daily. [address] GINKGO 2018-03 Yes 1{tbl} Take 1 Tab Uni vers BILOBA ORAL 0-24 by mouth ity of 16:12: daily. [address] acetaminoph 2018-03 Yes Take by Un yonathan en 0-24 mouth ity of (TYLENOL) 16:12: every 6 [place] 325 mg 38 (six) Medical tablet hours as Branch needed. CALCIUM 2018-03 Yes Take by Univer s CARBONATE/V 0-24 mouth. ity of ITAMIN D3 16:12: [place] (CALCIUM + 38 Medical D ORAL) [place] MULTIVITAMI 2018-03 Yes 1{tbl} Take 1 Tab Univers N ORAL 0-24 by mouth ity of 16:12: daily. [address] GINKGO 2018-03 Yes 1{tbl} Take 1 Tab Uni vers BILOBA ORAL 0-24 by mouth ity of 16:12: daily. [address] acetaminoph 2018-03 Yes Take by Un yonathan en 0-24 mouth ity of (TYLENOL) 16:12: every 6 [place] 325 mg 38 (six) Medical tablet hours as Branch needed. CALCIUM 2018-03 Yes Take by Univer s CARBONATE/V 0-24 mouth. ity of ITAMIN D3 16:12: [place] (CALCIUM + 38 Medical D ORAL) [place] MULTIVITAMI 2018-03 Yes 1{tbl} Take 1 Tab Univers N ORAL 0-24 by mouth ity of 16:12: daily. [address] GINKGO 2018-03 Yes 1{tbl} Take 1 Tab Uni vers BILOBA ORAL 0-24 by mouth ity of 16:12: daily. [address] acetaminoph 2018-03 Yes Take by Un yonathan en 0-24 mouth ity of (TYLENOL) 16:12: every 6 [place] 325 mg 38 (six) Medical tablet hours as Branch needed. CALCIUM 2018-03 Yes Take by Univer s CARBONATE/V 0-24 mouth. ity of ITAMIN D3 16:12: [place] (CALCIUM + 38 Medical D ORAL) [place] MULTIVITAMI 2018-03 Yes 1{tbl} Take 1 Tab Univers N ORAL 0-24 by mouth ity of 16:12: daily. [address] GINKGO 2018-03 Yes 1{tbl} Take 1 Tab Uni vers BILOBA ORAL 0-24 by mouth ity of 16:12: daily. [address] acetaminoph 2018-03 Yes Take by Un yonathan en 0-24 mouth ity of (TYLENOL) 16:12: every 6 [place] 325 mg 38 (six) Medical tablet hours as Branch needed. CALCIUM 2018-03 Yes Take by Univer s CARBONATE/V 0-24 mouth. ity of ITAMIN D3 16:12: [place] (CALCIUM + 38 Medical D ORAL) [place] MULTIVITAMI 2018-03 Yes 1{tbl} Take 1 Tab Univers N ORAL 0-24 by mouth ity of 16:12: daily. [address] GINKGO 2018-03 Yes 1{tbl} Take 1 Tab Uni vers BILOBA ORAL 0-24 by mouth ity of 16:12: daily. [address] acetaminoph 2018-03 Yes Take by Un yonathan en 0-24 mouth ity of (TYLENOL) 16:12: every 6 [place] 325 mg 38 (six) Medical tablet hours as Branch needed. CALCIUM 2018-03 Yes Take by Univer s CARBONATE/V 0-24 mouth. ity of ITAMIN D3 16:12: [place] (CALCIUM + 38 Medical D ORAL) [place] MULTIVITAMI 2018-03 Yes 1{tbl} Take 1 Tab Univers N ORAL 0-24 by mouth ity of 16:12: daily. [address] GINKGO 2018-03 Yes 1{tbl} Take 1 Tab Uni vers BILOBA ORAL 0-24 by mouth ity of 16:12: daily. [address] acetaminoph 2018-03 Yes Take by Un yonathan en 0-24 mouth ity of (TYLENOL) 16:12: every 6 [place] 325 mg 38 (six) Medical tablet hours as Branch needed. CALCIUM 2018-03 Yes Take by Univer s CARBONATE/V 0-24 mouth. ity of ITAMIN D3 16:12: [place] (CALCIUM + 38 Medical D ORAL) Branch MULTIVITAMI 2018-03 Yes 1{tbl} Take 1 Tab Univers N ORAL 0-24 by mouth ity of 16:12: daily. [address] GINKGO 2018-03 Yes 1{tbl} Take 1 Tab Uni vers BILOBA ORAL 0-24 by mouth ity of 16:12: daily. [address] acetaminoph 2018-03 Yes Take by Un yonahtan en 0-24 mouth ity of (TYLENOL) 16:12: every 6 [place] 325 mg 38 (six) Medical tablet hours as Branch needed. CALCIUM 2018-03 Yes Take by Univer s CARBONATE/V 0-24 mouth. ity of ITAMIN D3 16:12: [place] (CALCIUM + 38 Medical D ORAL) [place] MULTIVITAMI 2018-03 Yes 1{tbl} Take 1 Tab Univers N ORAL 0-24 by mouth ity of 16:12: daily. [address] GINKGO 2018-03 Yes 1{tbl} Take 1 Tab Uni vers BILOBA ORAL 0-24 by mouth ity of 16:12: daily. [address] acetaminoph 2018-03 Yes Take by Un yonathan en 0-24 mouth ity of (TYLENOL) 16:12: every 6 [place] 325 mg 38 (six) Medical tablet hours as Branch needed. CALCIUM 2018-03 Yes Take by Univer s CARBONATE/V 0-24 mouth. ity of ITAMIN D3 16:12: [place] (CALCIUM + 38 Medical D ORAL) [place] MULTIVITAMI 2018-03 Yes 1{tbl} Take 1 Tab Univers N ORAL 0-24 by mouth ity of 16:12: daily. [address] GINKGO 2018-03 Yes 1{tbl} Take 1 Tab Uni vers BILOBA ORAL 0-24 by mouth ity of 16:12: daily. [address] acetaminoph 2018-03 Yes Take by Un yonathan en 0-24 mouth ity of (TYLENOL) 16:12: every 6 [place] 325 mg 38 (six) Medical tablet hours as Branch needed. CALCIUM 2018-03 Yes Take by Univer s CARBONATE/V 0-24 mouth. ity of ITAMIN D3 16:12: [place] (CALCIUM + 38 Medical D ORAL) [place] MULTIVITAMI 2018-03 Yes 1{tbl} Take 1 Tab Univers N ORAL 0-24 by mouth ity of 16:12: daily. [address] GINKGO 2018-03 Yes 1{tbl} Take 1 Tab Uni vers BILOBA ORAL 0-24 by mouth ity of 16:12: daily. [address] acetaminoph 2018-03 Yes Take by Un yonathan en 0-24 mouth ity of (TYLENOL) 16:12: every 6 [place] 325 mg 38 (six) Medical tablet hours as Branch needed. CALCIUM 2018-03 Yes Take by Univer s CARBONATE/V 0-24 mouth. ity of ITAMIN D3 16:12: [place] (CALCIUM + 38 Medical D ORAL) Branch MULTIVITAMI 2018-03 Yes 1{tbl} Take 1 Tab Univers N ORAL 0-24 by mouth ity of 16:12: daily. [address] GINKGO 2018-03 Yes 1{tbl} Take 1 Tab Uni vers BILOBA ORAL 0-24 by mouth ity of 16:12: daily. [address] acetaminoph 2018-03 Yes Take by Un yonathan en 0-24 mouth ity of (TYLENOL) 16:12: every 6 [place] 325 mg 38 (six) Medical tablet hours as Branch needed. CALCIUM 2018-03 Yes Take by Univer s CARBONATE/V 0-24 mouth. ity of ITAMIN D3 16:12: [place] (CALCIUM + 38 Medical D ORAL) [place] MULTIVITAMI 2018-03 Yes 1{tbl} Take 1 Tab Univers N ORAL 0-24 by mouth ity of 16:12: daily. [address] GINKGO 2018-03 Yes 1{tbl} Take 1 Tab Uni vers BILOBA ORAL 0-24 by mouth ity of 16:12: daily. [address] acetaminoph 2018-03 Yes Take by Un yonathan en 0-24 mouth ity of (TYLENOL) 16:12: every 6 [place] 325 mg 38 (six) Medical tablet hours as Branch needed. CALCIUM 2018-03 Yes Take by Univer s CARBONATE/V 0-24 mouth. ity of ITAMIN D3 16:12: [place] (CALCIUM + 38 Medical D ORAL) Branch MULTIVITAMI 2018-03 Yes 1{tbl} Take 1 Tab Univers N ORAL 0-24 by mouth ity of 16:12: daily. [address] GINKGO 2018-03 Yes 1{tbl} Take 1 Tab Uni vers BILOBA ORAL 0-24 by mouth ity of 16:12: daily. [address] acetaminoph 2018-03 Yes Take by Un yonathan en 0-24 mouth ity of (TYLENOL) 16:12: every 6 [place] 325 mg 38 (six) Medical tablet hours as Branch needed. CALCIUM 2018-03 Yes Take by Univer s CARBONATE/V 0-24 mouth. ity of ITAMIN D3 16:12: [place] (CALCIUM + 38 Medical D ORAL) Branch MULTIVITAMI 2018-03 Yes 1{tbl} Take 1 Tab Univers N ORAL 0-24 by mouth ity of 16:12: daily. [address] Branch GINKGO 2018-03 Yes 1{tbl} Take 1 Tab Uni vers BILOBA ORAL 0-24 by mouth ity of 16:12: daily. [address] acetaminoph 2018-03 Yes Take by Un yonathan en 0-24 mouth ity of (TYLENOL) 16:12: every 6 [place] 325 mg 38 (six) Medical tablet hours as Branch needed. CALCIUM 2018-03 Yes Take by Univer s CARBONATE/V 0-24 mouth. ity of ITAMIN D3 16:12: [place] (CALCIUM + 38 Medical D ORAL) [place] MULTIVITAMI 2018-03 Yes 1{tbl} Take 1 Tab Univers N ORAL 0-24 by mouth ity of 16:12: daily. [address] GINKGO 2018-03 Yes 1{tbl} Take 1 Tab Uni vers BILOBA ORAL 0-24 by mouth ity of 16:12: daily. [address] acetaminoph 2018-03 Yes Take by Un yonathan en 0-24 mouth ity of (TYLENOL) 16:12: every 6 [place] 325 mg 38 (six) Medical tablet hours as Branch needed. CALCIUM 2018-03 Yes Take by Univer s CARBONATE/V 0-24 mouth. ity of ITAMIN D3 16:12: [place] (CALCIUM + 38 Medical D ORAL) Branch MULTIVITAMI 2018-03 Yes 1{tbl} Take 1 Tab Univers N ORAL 0-24 by mouth ity of 16:12: daily. [address] GINKGO 2018-03 Yes 1{tbl} Take 1 Tab Uni vers BILOBA ORAL 0-24 by mouth ity of 16:12: daily. [address] acetaminoph 2018-03 Yes Take by Un yonathan en 0-24 mouth ity of (TYLENOL) 16:12: every 6 [place] 325 mg 38 (six) Medical tablet hours as Branch needed. CALCIUM 2018-03 Yes Take by Univer s CARBONATE/V 0-24 mouth. ity of ITAMIN D3 16:12: [place] (CALCIUM + 38 Medical D ORAL) Branch MULTIVITAMI 2018-03 Yes 1{tbl} Take 1 Tab Univers N ORAL 0-24 by mouth ity of 16:12: daily. [address] Branch GINKGO 2018-03 Yes 1{tbl} Take 1 Tab Uni vers BILOBA ORAL 0-24 by mouth ity of 16:12: daily. [address] acetaminoph 2018-03 Yes Take by Un yonathan en 0-24 mouth ity of (TYLENOL) 16:12: every 6 [place] 325 mg 38 (six) Medical tablet hours as Branch needed. CALCIUM 2018-03 Yes Take by Univer s CARBONATE/V 0-24 mouth. ity of ITAMIN D3 16:12: [place] (CALCIUM + 38 Medical D ORAL) [place] MULTIVITAMI 2018-03 Yes 1{tbl} Take 1 Tab Univers N ORAL 0-24 by mouth ity of 16:12: daily. [address] GINK[place] 2018-03 Yes 1{tbl} Take 1 Tab Uni vers BILOBA ORAL 0-24 by mouth ity of 16:12: daily. [address] acetaminoph 2018-03 Yes Take by Un yonathan en 0-24 mouth ity of (TYLENOL) 16:12: every 6 [place] 325 mg 38 (six) Medical tablet hours as Branch needed. CALCIUM 2018-03 Yes Take by Univer s CARBONATE/V 0-24 mouth. ity of ITAMIN D3 16:12: [place] (CALCIUM + 38 Medical D ORAL) Branch MULTIVITAMI 2018-03 Yes 1{tbl} Take 1 Tab Univers N ORAL 0-24 by mouth ity of 16:12: daily. [address] GINK[place] 2018-03 Yes 1{tbl} Take 1 Tab Uni vers BILOBA ORAL 0-24 by mouth ity of 16:12: daily. [address] acetaminoph 2018-03 Yes Take by Un yonathan en 0-24 mouth ity of (TYLENOL) 16:12: every 6 [place] 325 mg 38 (six) Medical tablet hours as Branch needed. CALCIUM 2018-03 Yes Take by Univer s CARBONATE/V 0-24 mouth. ity of ITAMIN D3 16:12: [place] (CALCIUM + 38 Medical D ORAL) [place] MULTIVITAMI 2018-03 Yes 1{tbl} Take 1 Tab Univers N ORAL 0-24 by mouth ity of 16:12: daily. [address] GINK[place] 2018-03 Yes 1{tbl} Take 1 Tab Uni vers BILOBA ORAL 0-24 by mouth ity of 16:12: daily. [address] acetaminoph 2018-03 Yes Take by Un yonathan en 0-24 mouth ity of (TYLENOL) 16:12: every 6 [place] 325 mg 38 (six) Medical tablet hours as Branch needed. CALCIUM 2018-03 Yes Take by Univer s CARBONATE/V 0-24 mouth. ity of ITAMIN D3 16:12: [place] (CALCIUM + 38 Medical D ORAL) [place] MULTIVITAMI 2018-03 Yes 1{tbl} Take 1 Tab Univers N ORAL 0-24 by mouth ity of 11:12: daily. [address] GINK[place] 2018-03 Yes 1{tbl} Take 1 Tab Uni vers BILOBA ORAL 0-24 by mouth ity of 11:12: daily. [address] acetaminoph 2018-03 Yes Take by Un yonathan en 0-24 mouth ity of (TYLENOL) 11:12: every 6 [place] 325 mg 38 (six) Medical tablet hours as Branch needed. CALCIUM 2018-03 Yes Take by Univer s CARBONATE/V 0-24 mouth. ity of ITAMIN D3 11:12: [place] (CALCIUM + 38 Medical D ORAL) [place] MULTIVITAMI 2018-03 Yes 1{tbl} Take 1 Tab Univers N ORAL 0-24 by mouth ity of 11:12: daily. [address] GINK[place] 2018-03 Yes 1{tbl} Take 1 Tab Uni vers BILOBA ORAL 0-24 by mouth ity of 11:12: daily. [address] acetaminoph 2018-03 Yes Take by Un yonathan en 0-24 mouth ity of (TYLENOL) 11:12: every 6 [place] 325 mg 38 (six) Medical tablet hours as Branch needed. CALCIUM 2018-03 Yes Take by Univer s CARBONATE/V 0-24 mouth. ity of ITAMIN D3 11:12: [place] (CALCIUM + 38 Medical D ORAL) Branch MULTIVITAMI 2018-03 Yes 1{tbl} Take 1 Tab Univers N ORAL 0-24 by mouth ity of 11:12: daily. [address] Branch GINKGO 2018-03 Yes 1{tbl} Take 1 Tab Uni vers BILOBA ORAL 0-24 by mouth ity of 11:12: daily. [address] acetaminoph 2018-03 Yes Take by Un yonathan en 0-24 mouth ity of (TYLENOL) 11:12: every 6 [place] 325 mg 38 (six) Medical tablet hours as Branch needed. CALCIUM 2018-03 Yes Take by Univer s CARBONATE/V 0-24 mouth. ity of ITAMIN D3 11:12: [place] (CALCIUM + 38 Medical D ORAL) [place] MULTIVITAMI 2018-03 Yes 1{tbl} Take 1 Tab Univers N ORAL 0-24 by mouth ity of 11:12: daily. [address] GINK[place] 2018-03 Yes 1{tbl} Take 1 Tab Uni vers BILOBA ORAL 0-24 by mouth ity of 11:12: daily. [address] acetaminoph 2018-03 Yes Take by Un yonathan en 0-24 mouth ity of (TYLENOL) 11:12: every 6 [place] 325 mg 38 (six) Medical tablet hours as Branch needed. CALCIUM 2018-03 Yes Take by Univer s CARBONATE/V 0-24 mouth. ity of ITAMIN D3 11:12: [place] (CALCIUM + 38 Medical D ORAL) Branch alendronate Yes [id number] TAKE 1 Univers 70 mg 9-20 TABLET BY ity of tablet 00:00: MOUTH ONE [place] 00 TIME PER Medical WEEK Branch alendronate 2020- No [id number] TAKE 1 Univers 70 mg 9-20 03-19 TABLET BY ity of tablet 00:00: 00:00 MOUTH ONE [place] 00 :00 TIME PER Medical WEEK Branch alendronate 2019- No [id number] TAKE 1 Univers 70 mg 4-11 09-20 TABLET BY ity of tablet 00:00: 00:00 MOUTH [place] 00 :00 WEEKLY Medical Branch acetaminoph Yes Take by Un yonathan en 1-10 mouth ity of (TYLENOL) 15:56: every 6 [place] 325 mg 38 (six) Medical tablet hours as Branch needed. MAGNESIUM 2019-0 Yes Take by Univ ers ORAL 1-10 mouth. ity of 15:46: [place] 59 Medical Branch MULTIVITAMI 2019-0 Yes 1{tbl} Take 1 Tab Univers N ORAL 1-10 by mouth ity of 15:44: daily. [place] [facility] Branch GINKGO 2019-0 Yes 1{tbl} Take 1 Tab Uni vers BILOBA ORAL 1-10 by mouth ity of 15:44: daily. [place] [facility] Branch CALCIUM 2019-0 [facility]-10 mouth. ity of ITAMIN D3 15:44: [place] (CALCIUM + 49 Medical D ORAL) Branch Immunizations Ordered Filled Immunization Date Status Comments [facility] e Immunization Name Name SARS-COV-2 COVID-19 2020-07-01 Completed Unive rsity of MODERNA VACCINE 00:00:00 [facility] SARS-COV-2 COVID-19 2020-07-01 Completed Unive rsity of MODERNA VACCINE 00:00:00 [facility] SARS-COV-2 COVID-19 2020-07-01 Completed Unive rsity of MODERNA VACCINE 00:00:00 [facility] SARS-COV-2 COVID-19 2020-07-01 Completed Unive rsity of MODERNA VACCINE 00:00:00 [facility] SARS-COV-2 COVID-19 2020-07-01 Completed Unive rsity of MODERNA VACCINE 00:00:00 [facility] SARS-COV-2 COVID-19 2020-07-01 Completed Unive rsity of MODERNA VACCINE 00:00:00 [facility] SARS-COV-2 COVID-19 2020-07-01 Completed Unive rsity of MODERNA VACCINE 00:00:00 [facility] SARS-COV-2 COVID-19 2020-07-01 Completed Unive rsity of MODERNA VACCINE 00:00:00 [facility] SARS-COV-2 COVID-19 2020-07-01 Completed Unive rsity of MODERNA VACCINE 00:00:00 [facility] SARS-COV-2 COVID-19 2020-07-01 Completed Unive rsity of MODERNA VACCINE 00:00:00 [facility] SARS-COV-2 COVID-19 2020-07-01 Completed Unive rsity of MODERNA VACCINE 00:00:00 [place] [facility] ical Branch SARS-COV-2 COVID-19 2020-07-01 Completed Unive rsity of MODERNA VACCINE 00:00:00 [place] [facility] SARS-COV-2 COVID-19 2020-07-01 Completed Unive rsity of MODERNA VACCINE 00:00:00 [place] [facility] ical [facility] SARS-COV-2 COVID-19 2020-07-01 Completed Unive rsity of MODERNA VACCINE 00:00:00 [place] [facility] ical [facility] SARS-COV-2 COVID-19 2020-06-03 Completed Unive rsity of MODERNA VACCINE 00:00:00 [place] [facility] ical Branch SARS-COV-2 COVID-19 2020-06-03 Completed Unive rsity of MODERNA VACCINE 00:00:00 [place] [facility] ical Branch SARS-COV-2 COVID-19 2020-06-03 Completed Unive rsity of MODERNA VACCINE 00:00:00 [place] [facility] ical [facility] SARS-COV-2 COVID-19 2020-06-03 Completed Unive rsity of MODERNA VACCINE 00:00:00 [place] [facility] ical [facility] SARS-COV-2 COVID-19 2020-06-03 Completed Unive rsity of MODERNA VACCINE 00:00:00 [place] [facility] ical [facility] SARS-COV-2 COVID-19 2020-06-03 Completed Unive rsity of MODERNA VACCINE 00:00:00 [place] [facility] ical [facility] SARS-COV-2 COVID-19 2020-06-03 Completed Unive rsity of MODERNA VACCINE 00:00:00 [place] [facility] ical Branch SARS-COV-2 COVID-19 2020-06-03 Completed Unive rsity of MODERNA VACCINE 00:00:00 [place] [facility] ical Branch SARS-COV-2 COVID-19 2020-06-03 Completed Unive rsity of MODERNA VACCINE 00:00:00 [place] [facility] ical Branch SARS-COV-2 COVID-19 2020-06-03 Completed Unive rsity of MODERNA VACCINE 00:00:00 [place] [facility] ical [facility] SARS-COV-2 COVID-19 2020-06-03 Completed Unive rsity of MODERNA VACCINE 00:00:00 [facility] Branch SARS-COV-2 COVID-19 2020-06-03 Completed Unive rsity of MODERNA VACCINE 00:00:00 [facility] ical Branch SARS-COV-2 COVID-19 2020-06-03 Completed Unive rsity of MODERNA VACCINE 00:00:00 [facility] Branch SARS-COV-2 COVID-19 2020-06-03 Completed Unive rsity of MODERNA VACCINE 00:00:00 [facility] Branch SARS-COV-2 COVID-19 2020-06-03 Completed Unive rsity of MODERNA VACCINE 00:00:00 [facility] Vital Signs Vital Name Observation Time Observation Value Comments Source BMI 2020-12-03 20:09:00 18.88 kg/m2 [facility] Oxygen saturation in 2020-12-03 20:09:00 100 /min [facility] Arterial blood by [facility] Pulse oximetry Branch Systolic blood 2020-12-03 20:09:00 125 mm[Hg] Univer sity of pressure [facility] Diastolic blood 2020-12-03 20:09:00 71 mm[Hg] Unive rsity of pressure [facility] Heart rate 2020-12-03 20:09:00 63 /[facility] 2020-12-03 20:09:00 36.67 Kate Univ ersity of [facility] Respiratory rate 2020-12-03 20:09:00 18 /min Univ ersity of [facility] Body height 2020-12-03 20:09:00 167.6 cm [facility] Body weight 2020-12-03 20:09:00 53.071 kg [facility] Systolic blood 2020-04-02 14:47:00 123 mm[Hg] Univer sity of pressure [facility] Diastolic blood 2020-04-02 14:47:00 73 mm[Hg] Unive rsity of pressure [facility] Heart rate 2020-04-02 14:47:00 70 /min [facility] Body temperature 2020-04-02 14:44:00 36.33 Kate Univ ersity of [facility] Respiratory rate 2020-04-02 14:44:00 18 /min [facility] Body height 2020-04-02 14:44:00 167.6 cm [facility] Body weight 2020-04-02 14:44:00 56.79 kg [facility] BMI 2020-04-02 14:44:00 20.21 kg/m2 [facility] Oxygen saturation in 2020-04-02 14:44:00 100 /min [facility] Arterial blood by [facility] Pulse oximetry Branch Body weight 2019-12-10 14:19:00 [facility] BMI 2019-12-10 14:19:00 22.11 kg/m2 [facility] Procedures Procedure Date / Time Performing Clinician Source Performed DEXA AXIAL (HIP AND 2020-12-07 14:29:[address] [facility] SPINE) Medical Branch ASSIGNMENT OF BENEFITS 2019-12-10 14:01:24 Doctor Unassigned, No [facility] Name Medical Branch OU CORNEAL PACHYMETRY, 2019-12-10 00:00:00 Misa Stallworth [facility] BOTH EYES Medical [place] OU VISUAL FIELD 2019-12-10 00:00:00 Misa Stallworth [place] AUTOMATED INTERMEDIATE Medical B ranch (10-2), BOTH EYES OU SPECTRALIS DEC 20192019-12-10 00:00:00 Misa Stallworth [facility] MACULA, BOTH EYES Medical [place] OU SPECTRALIS OCT OPTIC 2019-12-10 00:00:00 Misa Stallworth [facility] NERVE, BOTH EYES Medical Branch Encounters Start End Encounter Admission Attending Care Care Encounter Source Date/Time Date/Time Type Type Clinicians Facility Department ID 2021-06-03 2021-06-03 Outpatient R PATI [facility] [id number] Univers 09:20:00 09:20:00 WIN [id number] ity of [facility] 2020-12-09 2020-12-09 Hospital Radiology [facility] [id number] Univers 12:59:21 23:59:00 [id number] [id number] [facility] 800 Branch 2020-12-09 2020-12-09 Outpatient R RADIOLOGY [facility] [id number] Univers 13:00:00 13:00:00 [id number] ity [facility] 2020-12-09 2020-12-09 Outpatient R RADIOLOGY [facility] [id number] Univers 00:00:00 00:00:00 ity [facility] 2020-12-07 2020-12-07 [facility] [id number] Univers 08:40:00 23:59:00 Encounter Melquiades Sanchez [id number] ity [facility] [id number] [facility] [id number] [address] 2020-12-07 2020-12-07 [facility] [id number] Univers 08:40:00 08:40:00 MELQUIADES [id number] ity [facility] 2020-12-07 2020-12-07 Outpatient R [facility] [id number] Univers 00:00:00 00:00:00 [facility] 2020-12-03 2020-12-03 [employer] Vtc-Lab [facility] [id number] Univers 15:54:58 16:09:58 Visit Win KruegerPEC [id number]. 10 ity of [place] [id number] [facility] [id number] [facility] AND PHAM [address] [place] DIABETES [facility] 2020-12-03 2020-12-03 Office [facility] [id number] Univers 14:44:02 15:51:01 Visit Win Ibrahim MULTISPEC [id number] ity of IALTY [id number] [facility] [place] [id number] [facility] AND ANKIT 0[facility] [place] [facility] 2020-12-03 2020-12-03 [facility] [id number] Univers 14:40:00 14:40:00 WIN [id number] ity [facility] 2020-12-03 2020-12-03 Outpatient R PATI [facility] [id number] Univers 14:40:00 14:40:00 WIN [facility] 2020-11-22 2020-11-22 Telephone Vazquez ROMULO [id number] Univers 00:00:00 00:00:00 Piper Talia DHRUV [id number] it y of [facility] [id number] Miki as [id number] [address] 2020-11-22 2020-11-22 Telephone ROMULO Shukla [id number] Univers 00:00:00 00:00:00 Piper R DHRUV [id number] it y of [facility] [id number] Miki as [id number] [address] 2020-11-22 2020-11-22 Telephone VazquezROMULO staples [id number] Univers 00:00:00 00:00:00 Piper R DHRUV [id number] it y of HOSPITAL [id number] Miki as [id number] [address] 2020-11-21 2020-11-21 Outpatient R [facility] [id number] Univers 19:20:00 19:20:00 [id number] [facility] 2020-11-21 2020-11-21 Outpatient R EBJANAM, [facility] [id number] Univers 19:20:00 19:20:00 CHIDI [facility] 2020-10-01 2020-10-01 Outpatient PERTUSI, [facility] [id number] Univers 09:20:00 09:20:00 WIN [id number] y [facility] 2020-10-01 2020-10-01 Outpatient R PERTUSI, [facility] [id number] Univers 09:20:00 09:20:00 WIN [facility] 2020-09-21 2020-09-21 Refill [facility] [id number] Univers 00:00:00 00:00:00 Win HOLDER [id number] ity [id number] [id number] [facility] AND PHAM 0[facility] [place] [facility] 2020-08-31 2020-08-31 Refjohn [facility] [id number] Univers 00:00:00 00:00:00 Win Ibrahim PRIMARY [id number] ity [id number] [id number] [address] 2020-07-01 2020-07-01 Outpatient Talia HERNANDEZ [facility] [id number] Univers 13:40:00 13:40:00 BRENDA ity [facility] 2020-06-03 2020-06-03 [facility] [id number] Univers 09:30:00 09:30:00 [facility] 2020-06-03 2020-06-03 Refill [facility] [id number] Univers 00:00:00 00:00:00 Win [place] PRIMARY [id number] it[id number] [id number] [address] 2020-06-01 2020-06-01 Patient [facility] [id number] Univers 00:00:00 00:00:00 Outreach Kostas PRIMARY [id number] i ty of [id number] [id number] [address] 2020-05-07 2020-05-07 Outpatient MISA ROWLEY [facility] [id number] Univers 09:30:00 09:30:00 [id number] ity [facility] 2020-05-07 2020-05-07 Outpatient MISA ROWLEY [facility] [id number] Univers 09:30:00 09:30:00 ity [facility] 2020-04-14 2020-04-14 Outpatient MISA ROWLEY [facility] [id number] Univers 08:30:00 08:30:00 [id number] ity [facility] 2020-04-14 2020-04-14 Outpatient R MISA STALLWORTH [facility] [id number] Univers 08:30:00 08:30:00 ity of [facility] 2020-04-02 2020-04-02 Office [facility] [id number] Univers 08:37:11 08:57:11 Visit Win HOLDER [id number] ity of IALTY [id number] [facility] [place] [id number] [facility] AND [address] DIABETES CLINIC 2020-04-02 2020-04-02 Outpatient R PATI [facility] [id number] Univers 08:20:00 08:20:00 WIN [id number] ity [facility] 2020-04-02 2020-04-02 [facility] [id number] Univers 08:20:00 08:20:00 WIN [facility] 2020-04-01 2020-04-01 Refill Felixy[facility]iel[facility] [id number] Univers 00:00:00 00:00:00 Win HOLDER [id number] ity of IALTY [id number] [facility] s [place]UKER [id number] [facility] AND [address] DIABETES CLINIC 2020-03-10 2020-03-10 [employer] 1, Adc Lab [facility] [id number] [id number] Univers 09:08:36 09:23:36 Visit Win Krueger [id number] 0 ity of [place] [id number] [facility] [id number] [address] 2020-03-10 2020-03-10 Outpatient R [facility] [id number] Univers 08:30:00 08:30:00 [id number] ity [facility] 2020-03-10 2020-03-10 Outpatient R [facility] [id number] Univers 08:30:00 08:30:00 ity of [facility] 2020-03-09 2020-03-09 [facility] [id number] Univers 00:00:00 00:00:00 Win Ibrahim PRIMARY [id number] [id number] [id number] [address] 2020-03-04 2020-03-04 [facility] [id number] Univers 00:00:00 00:00:00 Win Ibrahim MULTISPEC [id number] [id number] [id number] [facility] AND [address] DIABETES [facility] 2020-03-02 2020-03-02 [facility] [id number] Univers 00:00:00 00:00:00 Win Ibrahim MULTISPEC [id number] [id number] [id number] [address] DI[facility]ES [facility] 2019-12-10 2019-12-10 [facility] [id number] Univers 09:05:19 11:54:25 Visit R HEALTH [id number] [id number] [id number] [address] 2019-12-10 2019-12-10 Outpatient R FEDERICA MISA [facility] [id number] Univers 09:00:00 09:00:00 [id number] ity of [facility] 2019-12-10 2019-12-10 Outpatient R MISA STALLWORTH [facility] [id number] Univers 09:00:00 09:00:00 ity of [facility] 2019-12-10 2019-12-10 Orders Doctor SEBASTIAN 1.2.840.114 [id number] Univers 00:00:00 00:00:00 Only Unassigned, DHRUV [id number] [place] [facility] 4.2.7.2.686 Miki as [id number] [facility] [address] 2019-11-18 2019-11-18 Outpatient R THONG [facility] [id number] Univers 08:15:00 08:15:00 ACE [id number] ity of [facility] 2019-11-18 2019-11-18 Outpatient R THONG [facility] [id number] Univers 08:15:00 08:15:00 [facility] 2019-11-16 2019-11-16 Refill [facility] 1.2.840.114 [id number] Univers 00:00:00 00:00:00 Win Ibrahim PRIMARY [id number] [id number] [id number] [place] [address] 2019-10-03 2019-10-03 Outpatient R PATI [facility] [id number] Univers 10:00:00 10:00:00 WIN [id number] [facility] 2019-10-03 2019-10-03 [facility] [id number] Univers 10:00:00 10:00:00 WIN [facility] 2019-10-03 2019-10-03 [facility] 1.2.840.114 [id number] Univers 07:57:49 08:17:49 ne Visit Win Ibraihm MULTISPEC [id number] [id number] [id number] [address] DIABETES CLINIC 2019-09-26 2019-09-26 [facility] 1.2.840.114 [id number] Univers 00:00:00 00:00:00 Win Ibrahim MULTISPEC [id number] [id number] [id number] [facility] AND [address] DIABETES CLINIC 2019-09-01 2019-09-01 [facility] 1.2.840.114 [id number] Univers 00:00:00 00:00:00 Win Ibrahim MULTISPEC [id number] [id number] [id number] [facility] AND [address] DIABETES CLINIC 2019-07-25 2019-07-25 Outpatient R PATI, [facility] [id number] Univers 09:00:00 09:00:00 WIN [facility] 2019-07-11 2019-07-11 Telephone [facility] 1.2.840.114 [id number] Univers 00:00:00 00:00:00 Win Ibrahim PRIMARY [id number] [id number] [id number] [address] 2019-07-02 2019-07-02 Outpatient R PATI, [facility] [id number] Univers 14:20:00 14:20:00 WIN [id number] [facility] 2019-07-02 2019-07-02 Outpatient R PATI, [facility] [id number] Univers 14:20:00 14:20:00 WIN [facility] 2019-07-02 2019-07-02 [facility] 1.2.840.114 [id number] Univers 13:21:35 13:36:35 ne Visit Win Ibrahim PRIMARY [id number] [id number] [id number] [address] 2019-07-02 2019-07-02 Telephone [facility] 1.2.840.114 [id number] Univers 00:00:00 00:00:00 Win M MULTISPEC [id number] [id number] [id number] [facility] AND [address] DIABETES CLINIC 2019-06-27 2019-06-27 Telephone [facility] 1.2.840.114 [id number] Univers 00:00:00 00:00:00 Win Ibrahim MULTISPEC [id number] [id number] [id number] [facility] AND [address] DIABETES CLINIC 2019-06-12 2019-06-12 Telephone [facility] 1.2.840.114 [id number] Univers 00:00:00 00:00:00 Win Ibrahim MULTISPEC [id number] ity of IALTY [id number] [facility] [id number] [facility] AND [address] DIABETES CLINIC 2018-12-14 2018-12-14 Tahmina Krueger [facility] 1.2.840.114 [id number] Univers 00:00:00 00:00:00 Win Ibrahim MULTISPEC [id number] ity of IALTY [id number] [facility] [id number] [facility] AND [address] DIABETES CLINIC Results Test Description Test Time Test Comments Results Result Sourc e Comments OU CORNEAL 2019-12-10 avg K thickness Universit y of PACHYMETRY, BOTH 00:00:00 OU [facility] dical EYES Branch OU SPECTRALIS DEC 20192019-12-10 RNFL full OU Unive rsity of OPTIC NERVE, BOTH 00:00:00 [facility] EYES Branch OU SPECTRALIS DEC 20192019-12-10 No maculopathy Uni versity of [place], BOTH EYES 00:00:00 [facility] OU VISUAL FIELD 2019-12-10 No defects OU Univer sity of AUTOMATED 00:00:00 [facility] (10-2), BOTH EYES, Plaquenil/Red Stimulus OU CORNEAL 2019-12-10 avg K thickness Universit y of PACHYMETRY, BOTH 00:00:00 OU [facility] dical EYES Branch OU SPECTRALIS DEC 20192019-12-10 RNFL full OU Unive rsity of OPTIC NERVE, BOTH 00:00:00 [facility] OU SPECTRALIS DEC 20192019-12-10 No maculopathy Uni versity of [place], BOTH EYES 00:00:00 [facility] [place] OU VISUAL FIELD 2019-12-10 No defects OU Univer sity of AUTOMATED 00:00:00 [facility] (10-2), BOTH EYES, Plaquenil/Red Stimulus
[2021-04-01 10:59] LABS: Absolute Lymphocytes (CBC) 1.2 K/uL (0.7-4.9); Hematocrit 41.6 % (36.0-45.0); Lymphocytes % 20.7 % (15.3-44.8); MPV 7.5 fL (7.6-11.3); RBC Red Blood Cell Count 4.63 M/uL (3.86-4.86)
[2021-04-01 11:01] LABS: Protime INR 1.03
[2021-04-01 11:09] LABS: Potassium 4.1 mmol/L (3.5-5.1); Sodium Level 137 mmol/L (136-145)
[2021-04-01 11:21] LABS: ALT/SGPT 33 U/L (12-78); AST/SGOT 18 U/L (15-37); Albumin 3.6 g/dL (3.4-5.0); Alkaline Phosphatase 94 U/L (45-117); BUN Blood Urea Nitrogen 14 mg/dL (7-18); Bicarbonate 29 mmol/L (21-32); Bilirubin Direct 0.2 mg/dL (0-0.2); Bilirubin Total 0.7 mg/dL (0.2-1.0); Glucose Level 96 mg/dL (74-106); Magnesium 2.4 mg/dL (1.8-2.4); NT PRO-BNP 57 pg/mL (<125); Protein, Total 7.3 g/dL (6.4-8.2); Troponin (Emerg Dept Use Only) < 0.02 ng/mL (0.0-0.045)
--- NOTE | 2021-04-01 11:21 | RAD REPORT ---
EXAM DESCRIPTION: Junior Single View04/01/2021 11:14 am CLINICAL HISTORY: Chest pain COMPARISON: none FINDINGS: The lungs appear clear of acute infiltrate. The heart is normal size Calcified breast implants. IMPRESSION: No acute abnormalities displayed
--- NOTE | 2021-04-01 14:49 | ER ---
Nurse's Notes [facility] Name: Nancy Funes Age: 70 yrs Sex: Female : 1950 Arrival Date: 04/01/2021 Time: 09:53 Bed 10 Private MD: Diagnosis: Chest pain on breathing Presentation: 04/01 10:38 Chief complaint: Patient states: Left sided chest pain began last night that radiates vg1 to Left arm and shoulder; states h/a, denies SOB but states has chest pain upon deep inhalation. Also states nausea. Coronavirus screen: Vaccine status: Patient reports receiving the 2nd dose of the covid vaccine. Client denies travel out of the [place] in the last 14 days. Ebola Screen: Patient negative for fever greater than or equal to 101.5 degrees Fahrenheit, and additional compatible Ebola Virus Disease symptoms. Initial Sepsis Screen: Does the patient meet any 2 criteria? No. Patient's initial sepsis screen is negative. Does the patient have a suspected source of infection? No. Patient's initial sepsis screen is negative. Risk Assessment: Do you want to hurt yourself or someone else? Patient reports no desire to harm self or others. Onset of symptoms was March 31, 2021. 10:38 Method Of Arrival: Ambulatory vg1 10:38 Acuity: QUETA 2 vg1 Triage Assessment: 10:42 General: Appears in no apparent distress. comfortable, Behavior is calm, cooperative. vg1 Pain: Complains of pain in anterior aspect of left upper chest and left breast Pain radiates to left arm. Cardiovascular: Patient's skin is warm and dry. Historical: - Allergies: 10:42 Amoxicillin; vg1 - Home Meds: 10:42 calcium, potassium, zinc [Active]; ginkgo biloba Oral [Active]; hydroxychloroquine 200 vg1 mg Oral tab 1.5 tabs once daily [Active]; multivitamin Oral [Active]; - PMHx: 10:42 Lupus; vg1 - Immunization history:: Client reports receiving the 2nd dose of the Covid vaccine. - Social history:: Smoking status: Patient denies any tobacco usage or history of. - Family history:: not pertinent. - Hospitalizations: : No recent hospitalization is reported. Screenin:55 Abuse screen: Denies threats or abuse. Denies injuries from another. Nutritional iw screening: No deficits noted. Tuberculosis screening: No symptoms or risk factors identified. Fall Risk None identified. Assessment: 12:45 General: Appears in no apparent distress. Behavior is calm, cooperative. Pain: iw Complains of pain in left arm and chest and left breast. Pain: Pain began. Neuro: Level of Consciousness is awake, alert, obeys commands, Oriented to person, place, time, situation, Moves all extremities. Full function. Cardiovascular: Patient's skin is warm and dry. Respiratory: Respiratory effort is even, unlabored, Respiratory pattern is regular, symmetrical. Vital Signs: 10:38 BP 129 / 67; Pulse 79; Resp 16; Temp 97.6; Pulse Ox 100% ; Weight 52.16 kg; Height 5 vg1 ft. 6 in. (167.64 cm); Pain 4/10; 10:38 Body Mass Index 18.56 (52.16 kg, 167.64 cm) vg1 ED Course: 09:53 Patient arrived in ED. ds1 10:42 Triage completed. vg1 10:42 Arm band placed on. EKG completed in triage. Results shown to MD. vg1 10:43 Patient maintains SpO2 saturation greater than 95% on room air. vg1 10:47 Initial lab(s) drawn, by ED staff, sent to lab. Inserted saline lock: 20 gauge in left vg1 antecubital area, using aseptic technique. ,using aseptic technique. completed by MAGGIE, care information associate Blood collected. 10:51 Linda Noguera MD is Attending Physician. ma2 11:06 X-ray completed. Portable x-ray completed in exam room. sharif 11:15 XRAY Chest (1 view) In Process Unspecified. EDMS 12:07 Teena Syed, RN is Primary Nurse. iw 13:00 Patient has correct armband on for positive identification. Pulse ox on. NIBP on. iw 14:58 No provider procedures requiring assistance completed. IV discontinued, intact, iw bleeding controlled, No redness/swelling at site. Pressure dressing applied. Administered Medications: No medications were administered Outcome: 14:48 Discharge ordered by MD. ma2 14:58 Discharged to home ambulatory. iw 14:58 Condition: good 14:58 Discharge instructions given to patient, Instructed on discharge instructions, follow up and referral plans. medication usage, Demonstrated understanding of instructions, follow-up care. 14:59 Patient left the ED. iw Signatures: Dispatcher [employer] EDKS Kavitha Cantor ds1 Teena Syed, RN RN iw Linda Noguera MD MD ma2 Cassandra Reynoso md1 Lorelei Ovalle, RN RN vg1 Corrections: (The following items were deleted from the chart) 10:37 10:33 Inserted saline lock: 20 gauge in left antecubital area, using aseptic technique. vg1 ,using aseptic technique. Completed by MAGGIE, care information associate Blood collected. vg1 10:37 10:33 Initial lab(s) drawn, by ED staff, sent to lab. vg1 vg1 10:37 10:33 Patient maintains SpO2 saturation greater than 95% on room air. vg1 vg1
--- NOTE | 2021-04-01 14:49 | EDPHYS ---
Physician Documentation [facility] Name: Nacny Funes Age: 70 yrs Sex: Female : 1950 Arrival Date: 04/01/2021 Time: 09:53 Bed 10 Private MD: ED Physician Linda Noguera HPI: 04/01 10:51 This 70 yrs old Female presents to ER via Ambulatory with complaints of Chest Pain, L ma2 Side Pain. 10:51 The patient or guardian reports chest pain that is located primarily in the left ma2 breast. Onset: gradually, 1 day(s) ago. Associated signs and symptoms: The patient has no apparent associated signs or symptoms, Pertinent negatives: cough, lower extremity swelling, nausea, syncope, vomiting. Severity of pain: At its worst the pain was moderate in the emergency department the pain is unchanged. The patient has not experienced similar symptoms in the past. 10:51 Patient here with left lateral chest wall pain, started last night, has been constant ma2 for 12 hours, pain is only present when she takes deep breath, or twist her chest, she has no cough or shortness of breath, patient has CALIN score of 0 never had chest pain before never had heart issues, never had PE/DVT,. Historical: - Allergies: 10:42 Amoxicillin; vg1 - Home Meds: 10:42 calcium, potassium, zinc [Active]; ginkgo biloba Oral [Active]; hydroxychloroquine 200 vg1 mg Oral tab 1.5 tabs once daily [Active]; multivitamin Oral [Active]; - PMHx: 10:42 Lupus; vg1 - Immunization history:: Client reports receiving the 2nd dose of the Covid vaccine. - Social history:: Smoking status: Patient denies any tobacco usage or history of. - Family history:: not pertinent. - Hospitalizations: : No recent hospitalization is reported. ROS: 10:51 Constitutional: Negative for fever, chills, and weight loss. ma2 10:51 All other systems are negative. Exam: 10:51 Constitutional: This is a well developed, well nourished patient who is awake, alert, ma2 and in no acute distress. Head/Face: Normocephalic, atraumatic. Eyes: Pupils equal round and reactive to light, extra-ocular motions intact. Lids and lashes normal. Conjunctiva and sclera are non-icteric and not injected. Cornea within normal limits. Periorbital areas with no swelling, redness, or edema. ENT: Nares patent. No nasal discharge, no septal abnormalities noted. Tympanic membranes are normal and external auditory canals are clear. Oropharynx with no redness, swelling, or masses, exudates, or evidence of obstruction, uvula midline. Mucous membranes moist. Neck: Trachea midline, no thyromegaly or masses palpated, and no cervical lymphadenopathy. Supple, full range of motion without nuchal rigidity, or vertebral point tenderness. No Meningismus. Chest/axilla: Left lateral chest wall tenderness, chest pain reproducible on exam. Otherwise normal chest wall appearance and motion. Nontender with no deformity. No lesions are appreciated. Cardiovascular: Regular rate and rhythm with a normal S1 and S2. No gallops, murmurs, or rubs. Normal PMI, no JVD. No pulse deficits. Respiratory: Lungs have equal breath sounds bilaterally, clear to auscultation and percussion. No rales, rhonchi or wheezes noted. No increased work of breathing, no retractions or nasal flaring. Abdomen/GI: Soft, non-tender, with normal bowel sounds. No distension or tympany. No guarding or rebound. No evidence of tenderness throughout. MS/ Extremity: Pulses equal, no cyanosis. Neurovascular intact. Full, normal range of motion. Neuro: Awake and alert, GCS 15, oriented to person, place, time, and situation. Cranial nerves II-XII grossly intact. Motor strength 5/5 in all extremities. Sensory grossly intact. Cerebellar exam normal. Normal gait. Vital Signs: 10:38 BP 129 / 67; Pulse 79; Resp 16; Temp 97.6; Pulse Ox 100% ; Weight 52.16 kg; Height 5 vg1 ft. 6 in. (167.64 cm); Pain 4/10; 10:38 Body Mass Index 18.56 (52.16 kg, 167.64 cm) vg1 MDM: 10:51 Differential diagnosis: abnormal EKG, anxiety, coronary artery disease gastroesophageal ma2 reflux disease (GERD). HEART Score: History: Slightly Suspicious (0), ECG: Normal (0), Age: < or = 45 years (0), Risk Factors: No Risk Factors Known (0), Troponin: < or = 1 x Normal Limit (0), Total Score = 0. The patient's deep vein thrombosis risk score was calculated as follows: Total Score: 0. This patient was found to be at low risk for a deep vein thrombosis by using the Well's assessment criteria. The patient's pulmonary embolism risk score was calculated as follows: No Risks (0 Pts) Total Score: 0-2 points. This patient was found to be at low risk for a pulmonary embolism by using the Well's assessment criteria. 12:08 Patient medically screened. ma2 14:47 Data reviewed: vital signs, nurses notes, EMS record. Counseling: I had a detailed ma2 discussion with the patient and/or guardian regarding: the historical points, exam findings, and any diagnostic results supporting the discharge/admit diagnosis, the presence of at least one elevated blood pressure reading (>120/80) during this emergency department visit, the need for outpatient follow up. Response to treatment: the patient's symptoms have markedly improved after treatment. 04/01 10:34 Order name: Basic Metabolic Panel; Complete Time: 12:19 04/01 10:34 Order name: CBC with Diff; Complete Time: 12: 04/01 10:34 Order name: LFT's; Complete Time: 12:19 04/01 10:34 Order name: Magnesium; Complete Time: 12:19 04/01 10:34 Order name: NT PRO-BNP; Complete Time: 12:19 04/01 10:34 Order name: PT-INR; Complete Time: 12:19 04/01 10:34 Order name: Troponin (emerg Dept Use Only); Complete Time: 12:19 04/01 10:34 Order name: XRAY Chest (1 view); Complete Time: 12:19 04/01 10:34 Order name: EKG; Complete Time: 10:35 04/01 10:34 Order name: Cardiac monitoring; Complete Time: 12:59 04/01 10:34 Order name: EKG - Nurse/Tech; Complete Time: 10:34 04/01 10:34 Order name: IV Saline Lock; Complete Time: 10:34 04/01 10:34 Order name: Labs collected and sent; Complete Time: 10:34 04/01 13:07 Order name: Troponin (emerg Dept Use Only); Complete Time: 14:31 ma2 04/01 10:34 Order name: O2 Per Protocol; Complete Time: 10:34 vg1 04/01 10:34 Order name: O2 Sat Monitoring; Complete Time: 10: vg1 Administered Medications: No medications were administered Disposition Summary: 04/01/21 14:48 Discharge Ordered Location: Home ma2 Condition: Stable ma2 Diagnosis - Chest pain on breathing ma2 Followup: ma2 - With: Private Physician - When: Today - Reason: Continuance of care Discharge Instructions: - Discharge Summary Sheet ma2 - Nonspecific Chest Pain, Adult, [id number] ma2 Forms: - Medication Reconciliation Form ma2 - Thank You Letter ma2 - Antibiotic Education ma2 - Prescription Opioid Use ma2 Prescriptions: - Diclofenac Sodium 75 mg Oral Tablet Sustained Release - take 1 tablet by ORAL route 2 times per day; 30 tablet; Refills: 0, Product ma2 Selection Permitted Signatures: Dispatcher [employer] EDMS Linda Noguera MD MD ma2 Lorelei Ovalle RN RN vg1
[2021-04-01 15:05] VITALS: BP 129/67; TEMP 97.6; O2SAT 100
--- NOTE | 2021-04-02 10:05 | EKG ---
Test Date: 2021-04-01 Test Time: 10:41:56 [employer] Machine Tender: MAGGIE MEASUREMENT RESULTS: Intervals: Rate: 79 NH: 146 QRSD: 84 QT: 374 QTc: 428 [place]: P: 84 NH: 146 QRS: 79 T: 48 INTERPRETIVE STATEMENTS: Sinus rhythm with premature atrial complexes Biatrial enlargement Possible Anterior infarct, age undetermined Abnormal ECG Compared to ECG 04/05/2018 17:04:49 Atrial premature complex(es) now present Atrial abnormality now present Myocardial infarct finding still present Electronically Signed On 04-02-21 10:04:35 FINANCE CONTROLLER by Tod Matta
== END 2021-04-01 14:59 | disposition home or self-care (01) ==
LOC: ER 09:52
DX: R07.1 Chest pain on breathing (principal); Z88.1 Allergy status to other antibiotic agents
CPT/HCPCS: 36415; 71045; 80048; 80076; 83735; 83880; 84484; 85025; 85610; 93005; 99284